=== PATIENT | female | born 1930 | race Caucasian/White ===

== ENCOUNTER → 2016-08-02 | Outpatient (REF) | payer MEDICARE, OTHER ==
[~2016-08-02] MED LIST: /HCTZ25TA PO; ALEV220C2 PO; ASTE137S; ATOR1TAB19 PO; CYCL5TA PO; DOCU100C PO; DOCU10ELUD PO; DULO1CAP2 PO; DULO30CA PO; FELO2.5T PO; FIBE625T PO; GABA300C2 PO; LATA0.00 OD; LATA0.00 OS; LATA5OPD OD; META800T82 PO; MOBI15TA PO; MULTTAB4 PO; OMEP20CA3 PO; OSCA200T PO; PERCOCET PO; POTA10TA PO; PREG50CA PO; QUET1TAB7 PO; SYSTANE BALANCE OU; TIZA2CAP3 PO; TRAM50TA2 PO; TYLE1TAB5 PO; ULTR37.52 PO; ULTR37.539 PO; ULTR50TA PO; [UNRECOGNIZED DRUG - CODE] PO
[2016-08-02 11:46] LABS: ALBUMIN 3.8 GM/DL (3.2-5.2); ALBUMIN/GLOBULIN RATIO 1.46 (1.00-1.93); ALKALINE PHOSPHATASE 80 U/L (45-117); ALT/SGPT 28 U/L (12-78); ANION GAP 7 MEQ/L (8-16); AST/SGOT 23 U/L (15-37); BILIRUBIN,TOTAL 0.4 MG/DL (0.2-1.0); BLOOD UREA NITROGEN 24 MG/DL (7-18); CALCIUM LEVEL 9.1 MG/DL (8.8-10.2); CARBON DIOXIDE LEVEL 33 MEQ/L (21-32); CHLORIDE LEVEL 105 MEQ/L (98-107); CREATININE FOR GFR 0.84 MG/DL (0.55-1.02); GLOMERULAR FILTRATION RATE > 60.0 (>32); GLUCOSE, FASTING 108 MG/DL (83-110); POTASSIUM SERUM 4.4 MEQ/L (3.5-5.1); SODIUM LEVEL 145 MEQ/L (136-145); TOTAL PROTEIN 6.4 GM/DL (6.4-8.2)
== END ==
LOC: M SFHCPLAZ 09:15
PROVIDERS: ATTEND Nurse Practitioner Family
DX: I10 Essential (primary) hypertension (principal)

== ENCOUNTER → 2016-08-04 | Outpatient (CLI) | payer MEDICARE, OTHER ==
--- NOTE | 2016-08-05 23:52 | ECWPNPC ---
PATIENT NAME: ROSINA SANCHEZ : 1930 GENDER: FEMALE VISIT DATE: 08/04/2016 DISCHARGE DATE: 08/04/16 1124 VISIT LOCKED DATE TIME: PHYSICIAN: ULYSSES STEARNS RESOURCE: ULYSSES STEARNS REASON FOR APPOINTMENT 1. DCS CHECK HISTORY OF PRESENT ILLNESS HISTORY OF PRESENT ILLNESS: PAIN THE PATIENT DESCRIBES THE PAIN... FALL RISK SCREENING: SCREENING :NO FALLS IN THE PAST YEAR TODAY'S VISIT: NOTES: RATES PAIN TODAY 3/10. NOTES DCS IS WORKING FAIRLY WELL. IS HAVING MORE DISCOMFORT TO KNEES WITH A CLICKING. NOTES PAIN IS INTERMITTANT HAS BEEN ABLE TO STAND TO DO HOUSEHOLD ACTIVITES BUT NOT ABLE TO WALK FAR SHE WOULD LIKE.. IS HAVING FRUSTRATION WITH NOT BEING ABLE TO DO EVERYTHING SHE WOULD LIKE TO DO. HAS SOME DIFFICULTY GETTING HER STIM TO CHARGE FULLY BUT NOTES IT HAS PRODICED SIGNIFICANT PAIN CONTROL. CURRENT MEDICATIONS TAKING SALINE 0.65 % SOLUTION 1 APPLICATION IN EACH NOSTRIL TO TREAT DRY NASAL PASSAGES NASALLY TWICE A DAY TAKING OSCAL 500/200 D-3 500-200 MG-UNIT TABLET 1 TABLET WITH FOOD ORALLY ONCE A DAY TAKING VITAMIN D 1000 UNIT TABLET 1 TABLET ORALLY ONCE A DAY TAKING MULTIVITAMINS OTC TABLET 1 TAB ORALLY ONCE A DAY TAKING TRAVATAN 0.004 % SOLUTION 1 DROP INTO AFFECTED EYE EVERY EVENING OPHTHALMIC ONCE A DAY TAKING CLOBETASOL PROPIONATE 0.05 % FOAM 1 APPLICATION TO AFFECTED AREA EXTERNALLY TWICE A DAY, PER DRMATOLOGY, NOTES: DERM TAKING COMPRESSION STOCKINGS 15-20 -DX: LEG EDEMA KNEE HIGH TOPICAL DAILY TAKING COLACE 100 MG CAPSULE 1-2 CAPSULES NEEDED ORALLY ONCE A DAY TAKING TYLENOL PM EXTRA STRENGTH 500-25 MG TABLET 2 TABS AT BEDTIME NEEDED ORALLY ONCE A DAY, NOTES: PAIN CLINIC TAKING SEROQUEL 50 MG TABLET 1 TABLET ORALLY TWICE A DAY, NOTES: DR ESPINOSA TAKING LATANOPROST 0.005 % SOLUTION 1 DROP INTO AFFECTED EYE IN THE EVENING OPHTHALMIC ONCE A DAY TAKING SYSTANE BALANCE 0.6 % SOLUTION 1 DROP OPHTHALMIC TWICE A DAY TAKING FELODIPINE 2.5 MG TABLET EXTENDED RELEASE 24 HOUR 1 TABLET ORALLY ONCE A DAY TAKING CYMBALTA 30 MG CAPSULE DELAYED RELEASE PARTICLES 1 CAPSULE ORALLY ONCE DAILY AT BEDTIME TAKING ALEVE 220 MG TABLET 1 TABLET NEEDED ORALLY EVERY 12 HRS TAKING OMEPRAZOLE 20 MG CAPSULE DELAYED RELEASE 1 CAPSULE ORALLY ONCE A DAY NEEDED TAKING LIPITOR 10 MG TABLET 1 TABLET ORALLY ONCE A DAY TAKING AZELASTINE HCL 0.1 % SOLUTION 1 PUFF IN EACH NOSTRIL NASALLY TWICE A DAY NOT-TAKING ACETAMINOPHEN 500 MG TABLET [address] SANFORD ORALLY EVERY 8 HRS NEEDED UNKNOWN BENZONATATE 100 MG CAPSULE 1 CAPSULE NEEDED ORALLY THREE TIMES A DAY MEDICATION LIST REVIEWED AND RECONCILED WITH THE PATIENT PAST MEDICAL HISTORY ALLERGIC RHINITIS HYPERTENSION, ESSENTIAL HYPERLIPIDEMIA, MIXED OSTEOARTHRITIS OSTEOPOROSIS: DEXA 03/16- FRAX SCORE: 16% MAJOR FX, 5.1% HIP FX RISK, STOPPED FOSAMAX DUE TO DENTAL PROBLEMS DEGENERATIVE DISEASE LUMBOSACRAL SPINE - DR SANFORD/ PAIN CLINIC DEPRESSION ALLERGIES TRAMADOL: ITCHING: ALLERGY SOCIAL HISTORY GENERAL: TOBACCO USE ARE YOU A:NONSMOKER LEARNING BARRIERS / SPECIAL NEEDS ORIENTED TO PLAN OF CARE: PATIENT, PAIN MANAGEMENT PATIENT, ORIENTED TO PLAN OF CARE: PATIENT, PAIN MANAGEMENT PATIENT. NEW PATIENT PAIN DIARY TODAY'S VISITNOTES FROM 0-10, WHAT LEVEL IS YOUR PAIN TODAY?0 PAIN CLINIC PFS, CLERGY, PUBLIC HEALTH REFERRALS PFS REFERRAL NEEDED?NO CLERGY REFERRAL NEEDED?NO PUBLIC HEALTH REFERRAL NEEDED?NO WAS THE PROVIDER NOTIFIED OF ANY PERTINENT INFO?NO PFS REFERRAL NEEDED?NO CLERGY REFERRAL NEEDED?NO PUBLIC HEALTH REFERRAL NEEDED?NO WAS THE PROVIDER NOTIFIED OF ANY PERTINENT INFO?NO REVIEW OF SYSTEMS CONSTITUTIONAL: ANY CHANGE IN YOUR MEDICAL CONDITION? NO . CHILLS NO . FEVER NO . INFECTION: DO YOU HAVE NEW INFECTIONS? NO . DO YOU HAVE HISTORY OF MRSA? NO . GASTROENTEROLOGY: ANY NEW CHANGE IN BOWEL CONTROL? NO . CONSTIPATION NO ASSOCIATED RECTAL BLEEDING . GENITOURINARY: ANY NEW CHANGE IN BLADDER CONTROL? NO . IS THERE A CHANCE YOU COULD BE ? NO . HEMATOLOGY/LYMPH: DO YOU TAKE ANY BLOOD THINNERS? (FOR EXAMPLE- COUMADIN, PLAVIX, AGGRENOX, PLATEL, PRADAXA, OR XARELTO) NO . WHEN WAS YOUR LAST DOSE? DATE: TIME: . NEUROLOGY: HAVE YOU FALLEN IN THE PAST 6 MONTHS? NO . ANY NEW EXTREMITY NUMBNESS OR WEAKNESS? NO . CARDIOLOGY: DO YOU HAVE A PACEMAKER OR DEFIBRILLATOR? NO . RESPIRATORY: HAVE YOU BEEN SICK IN THE PAST WEEK? YES COLD FOR THE PAST FEW WEEKS--FEELING BETTER NOW . FEVER NO . FLU LIKE SYMPTOMS? NO . COUGH NO . INTEGUMENTARY: DO YOU HAVE ANY RASHES OR OPEN SORES? YES . ALLERGIC/IMMUNO: ARE YOU ALLERGIC TO SHELLFISH OR IV DYE? NO . ANY NEW ALLERGIES? NO . PSYCHIATRIC: DO YOU HAVE THOUGHTS OF HURTING YOURSELF OR SOMEONE ELSE? NO . ARE YOU ABUSED, NEGLECTED, OR IN AN UNSAFE ENVIRONMENT? NO . ENDOCRINOLOGY: ARE YOU DIABETIC? NO . OTHER: DO YOU NEED ANY PRESCRIPTIONS? NO . IF YES, PLEASE LIST: ____ . ANY NEW PROBLEMS WITH YOUR MEDICATIONS? NO . WHEN DID YOU LAST EAT? ____ . WHEN DID YOU LAST DRINK? ____ . WHAT DID YOU LAST DRINK? ____ . NAME OF PERSON DRIVING YOU HOME? ____ . DO YOU HAVE ANY OTHER QUESTIONS OR CONCERNS PAIN IN KNEES . HEENT: LOSS OF HEARING NEW HEARING AIDE - HAS SORE AREA ON RIGHT EAR . PSYCHOLOGY: HALLUCINATIONS NOTES VERY RARE EPISODES OF "MUSIC' AND THIS HAS NOT BEEN TROUBLESOME . UROLOGY: PATIENT COMPLAINING OF FREQUENT URINATION . REVIEWED BY: PROVIDER: ULYSSES CARLISLE . VITAL SIGNS WT 142 LBS, HT 65.5 IN, BMI 23.27 INDEX, BP 140/75 MM HG, HR 88 /MIN, RR 18 /MIN, TEMP 98.4 F, OXYGEN SAT % 97%, NA INITIALS SC 10:30, REVIEWED BY: AD. EXAMINATION GENERAL EXAMINATION: LUNGS:CLEAR TO AUSCULTATION BILATERALLY. HEART:HEART RATE REGULAR. MUSCULOSKELETAL:MILD TENDERNESS OVER LUMBOSACRAL AXIS. SLOW TO RISE TO STANDING POSITION AND GAINING UPRIGHT BALANCE. SPINE INSPECTED - WELL HEALED SURGICAL INCISIONS. NO SKIN LESION. NO TENDERNESS OVER THW BATTERY GENERATOR RIGHT SACRAL REGION. 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 NO SHARPS BENDS AT WAIST., FALLS CARE PLAN: 1. RECOMMEND REMOVING ALL THROW RUGS. 2. RECOMMEND NIGHT LIGHTS 3. RECOMMEND WEARING RUBBER SOLED SHOES AND TO NOT GO BAREFOOT. 4.. ADVISED TO CHANGE POSITION SLOWLY FROM SUPINE TO STANDING TO AVOID DIZZINESS. 5. ADVISED TO USE ASSISTIVE DEVICE SUCH CANE OR WALKER 6. USE LIFELINE SERVICES OR KEEP PORTABLE PHONE READILY AVAILABLE. PROCEDURE CODES FA211 ESTABILISHED PATIENT [facility] CHARGE G8783 BP SCR PRFRM RCMDD DEFIND SCR INTVL G8730 PAIN ASSESS POS TOOL F/U PLAN DOC 3016F PT SCRND UNHLTHY OH USE 1123F ACP DISCUSS/DSCN MKR DOCD 1036F TOBACCO NON-USER 0518F FALL PLAN OF CARE DOCD G8427 DOC MEDS VERIFIED W/PT OR RE G8420 BMI<30 AND >=22 CALC & DOCU 3288F FALL RISK ASSESSMENT DOCD DISPOSITION & COMMUNICATION FOLLOW UP 6 MONTH ELECTRONICALLY SIGNED BY СВЕТЛАНА RYAN ON 08/04/2016 AT 11:47 AM EST DISCLAIMER : THIS IS A VISIT SUMMARY EXTRACTED FROM THE [employer] CHART. IT IS NOT A COPY OF THE [employer] PROGRESS NOTE. SHIRIN
== END ==
LOC: M PAIN 10:00
PROVIDERS: ATTEND Nurse Practitioner Family
DX: Z09 Encounter for follow-up examination after completed treatment for conditions other than malignant neoplasm (principal); G89.29 Other chronic pain; M96.1 Postlaminectomy syndrome, not elsewhere classified; M15.9 Polyosteoarthritis, unspecified; I10 Essential (primary) hypertension; E78.2 Mixed hyperlipidemia; J30.89 Other allergic rhinitis; F32.9 Major depressive disorder, single episode, unspecified; Z88.5 Allergy status to narcotic agent; Z79.1 Long term (current) use of non-steroidal anti-inflammatories (NSAID); Z79.899 Other long term (current) drug therapy

== ENCOUNTER → 2017-02-06 | Outpatient (CLI) | payer MEDICARE, OTHER ==
[~2017-02-06] MED LIST changes: -DOCU100C PO; +DOCU100C16 PO; -ULTR37.52 PO; +ULTR37.54 PO
--- NOTE | 2017-02-25 00:23 | ECWPNPC ---
PATIENT NAME: ROSINA SANCHEZ : 1930 GENDER: FEMALE VISIT DATE: 02/06/2017 DISCHARGE DATE: 02/06/17 1227 VISIT LOCKED DATE TIME: PHYSICIAN: ULYSSES STEARNS RESOURCE: ULYSSES STEARNS REASON FOR APPOINTMENT 1. DCS CHECK HISTORY OF PRESENT ILLNESS HISTORY OF PRESENT ILLNESS: PAIN THE PATIENT DESCRIBES THE PAIN... FALL RISK SCREENING: SCREENING :NO FALLS IN THE PAST YEAR TODAY'S VISIT: NOTES: RATES PAIN TODAY 3-4/10. DESCRIBES PAIN INTERMITTANT AND LOCATED IN LOW BACK, LEFT SIDE. NOTES BACK AND LEG PAIN HAVE BEEN UNDER FAIRLY GOD CONTROL. NOTES STIM IS WORKING WELL. IS ABLE TO STAND WHERE THIS WAS A PROBLEM PRIOR TO THE STIMULATOR. NOTES LEFT KNEE IS PROBLEMATIC. INTERMITTANT ISSUES WITH RIGHT SHOULDER JOINT. CURRENT MEDICATIONS TAKING SALINE 0.65 % SOLUTION 1 APPLICATION IN EACH NOSTRIL TO TREAT DRY NASAL PASSAGES NASALLY TWICE A DAY TAKING OSCAL 500/200 D-3 500-200 MG-UNIT TABLET 1 TABLET WITH FOOD ORALLY ONCE A DAY TAKING VITAMIN D 1000 UNIT TABLET 1 TABLET ORALLY ONCE A DAY TAKING MULTIVITAMINS OTC TABLET 1 TAB ORALLY ONCE A DAY TAKING TRAVATAN 0.004 % SOLUTION 1 DROP INTO AFFECTED EYE EVERY EVENING OPHTHALMIC ONCE A DAY TAKING CLOBETASOL PROPIONATE 0.05 % FOAM 1 APPLICATION TO AFFECTED AREA EXTERNALLY TWICE A DAY, PER DRMATOLOGY, NOTES: DERM TAKING COMPRESSION STOCKINGS -DX: LEG EDEMA KNEE HIGH TOPICAL DAILY TAKING COLACE 100 MG CAPSULE 1-2 CAPSULES NEEDED ORALLY ONCE A DAY TAKING TYLENOL PM EXTRA STRENGTH 500-25 MG TABLET 2 TABS AT BEDTIME NEEDED ORALLY ONCE A DAY, NOTES: PAIN CLINIC TAKING SEROQUEL 50 MG TABLET 1 TABLET ORALLY TWICE A DAY, NOTES: DR ESPINOSA TAKING LATANOPROST 0.005 % SOLUTION 1 DROP INTO AFFECTED EYE IN THE EVENING OPHTHALMIC ONCE A DAY TAKING SYSTANE BALANCE 0.6 % SOLUTION 1 DROP OPHTHALMIC TWICE A DAY TAKING AZELASTINE HCL 0.1 % SOLUTION 1 PUFF IN EACH NOSTRIL NASALLY TWICE A DAY TAKING ACETAMINOPHEN 500 MG TABLET [address] SANFORD ORALLY EVERY 8 HRS NEEDED TAKING OMEPRAZOLE 20 MG CAPSULE DELAYED RELEASE 1 CAPSULE ORALLY ONCE A DAY NEEDED TAKING LIPITOR 10 MG TABLET 1 TABLET ORALLY ONCE A DAY TAKING ASTELIN 30 MG SOLUTION 1-2 PUFFS IN EACH NOSTRIL NASALLY TWICE A DAY NEEDED TAKING ALEVE 220 MG TABLET 1 TABLET NEEDED ORALLY EVERY 12 HRS TAKING FELODIPINE 2.5 MG TABLET EXTENDED RELEASE 24 HOUR 1 TABLET ORALLY ONCE A DAY NOT-TAKING CYMBALTA 30 MG CAPSULE DELAYED RELEASE PARTICLES 1 CAPSULE ORALLY ONCE DAILY AT BEDTIME NOT-TAKING BENZONATATE 100 MG CAPSULE 1 CAPSULE NEEDED ORALLY THREE TIMES A DAY MEDICATION LIST REVIEWED AND RECONCILED WITH THE PATIENT PAST MEDICAL HISTORY ALLERGIC RHINITIS HYPERTENSION, ESSENTIAL HYPERLIPIDEMIA, MIXED OSTEOARTHRITIS (NEG SCREEN FOR RA, SANDEE) OSTEOPOROSIS: DEXA 11/17- FRAX SCORE: 20% MAJOR FX, 5.9% HIP FX RISK, STOPPED FOSAMAX DUE TO DENTAL PROBLEMS DEGENERATIVE DISEASE LUMBOSACRAL SPINE - DR SANFORD/ PAIN CLINIC DEPRESSION ALLERGIES TRAMADOL: ITCHING: ALLERGY REVIEW OF SYSTEMS REVIEWED BY: PROVIDER: ULYSSES CARLISLE . CONSTITUTIONAL: LEVEL OF FUNCTIONALITY NOW HAS LIFE ALERT DEVICE . ANY CHANGE IN YOUR MEDICAL CONDITION? NO . CHILLS NO . FEVER NO . INFECTION: DO YOU HAVE NEW INFECTIONS? NO . DO YOU HAVE HISTORY OF MRSA? NO . MUSCULOSKELETAL: ANY NEW PATTERNS OF PAIN OR NUMBNESS? YES, BOTH KNEES . GASTROENTEROLOGY: ANY NEW CHANGE IN BOWEL CONTROL? NO . GENITOURINARY: ANY NEW CHANGE IN BLADDER CONTROL? NO . IS THERE A CHANCE YOU COULD BE ? NO . HEMATOLOGY/LYMPH: DO YOU TAKE ANY BLOOD THINNERS? (FOR EXAMPLE- COUMADIN, PLAVIX, AGGRENOX, PLATEL, PRADAXA, OR XARELTO) NO . WHEN WAS YOUR LAST DOSE? DATE: TIME: . NEUROLOGY: HAVE YOU FALLEN IN THE PAST 6 MONTHS? NO . ANY NEW EXTREMITY NUMBNESS OR WEAKNESS? NO . CARDIOLOGY: DO YOU HAVE A PACEMAKER OR DEFIBRILLATOR? NO . RESPIRATORY: HAVE YOU BEEN SICK IN THE PAST WEEK? NO . FEVER NO . FLU LIKE SYMPTOMS? NO . COUGH NO . INTEGUMENTARY: DO YOU HAVE ANY RASHES OR OPEN SORES? NO . ALLERGIC/IMMUNO: ARE YOU ALLERGIC TO SHELLFISH OR IV DYE? NO . ANY NEW ALLERGIES? NO . PSYCHIATRIC: DO YOU HAVE THOUGHTS OF HURTING YOURSELF OR SOMEONE ELSE? NO . ARE YOU ABUSED, NEGLECTED, OR IN AN UNSAFE ENVIRONMENT? NO . ENDOCRINOLOGY: ARE YOU DIABETIC? NO . OTHER: DO YOU NEED ANY PRESCRIPTIONS? NO . IF YES, PLEASE LIST: ____ . ANY NEW PROBLEMS WITH YOUR MEDICATIONS? NO . WHEN DID YOU LAST EAT? ____ . WHEN DID YOU LAST DRINK? ____ . WHAT DID YOU LAST DRINK? ____ . NAME OF PERSON DRIVING YOU HOME? ____ . DO YOU HAVE ANY OTHER QUESTIONS OR CONCERNS NO . HEENT: LOSS OF HEARING HAVING ISSUES WITH HEARING AIDES AND HAS BEEN TO AUDIOLOGY . 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 INICIAL WORK DONE IN [facility] WITH FURTHER REVISION IN [facility] . VITAL SIGNS WT 147 LBS, HT 65.5 IN, BMI 24.09 INDEX, BP 144/75 MM HG, HR 89 /MIN, RR 16 /MIN, TEMP 98.3 F, OXYGEN SAT % 98%, NA INITIALS 11:44. EXAMINATION GENERAL EXAMINATION: LUNGS:CLEAR TO AUSCULTATION BILATERALLY. HEART:HEART RATE REGULAR. MUSCULOSKELETAL:MILD TENDERNESS OVER LUMBOSACRAL AXIS. SLOW TO RISE TO STANDING POSITION AND GAINING UPRIGHT BALANCE. SPINE INSPECTED - WELL HEALED SURGICAL INCISIONS. NO SKIN LESION. NO TENDERNESS OVER THW BATTERY GENERATOR RIGHT SACRAL REGION. 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 PROCEDURE CODES FA211 ESTABILISHED PATIENT [facility] CHARGE G8730 PAIN ASSESS POS TOOL F/U PLAN DOC G8427 DOC MEDS VERIFIED W/PT OR RE DISPOSITION & COMMUNICATION FOLLOW UP 6 MONTHS (REASON: BACK PAIN /DCS) ELECTRONICALLY SIGNED BY СВЕТЛАНА RYAN ON 02/23/2017 AT 08:48 AM EDT DISCLAIMER : THIS IS A VISIT SUMMARY EXTRACTED FROM THE [employer] CHART. IT IS NOT A COPY OF THE [employer] PROGRESS NOTE. SHIRIN
== END ==
LOC: M PAIN 11:30
PROVIDERS: ATTEND Nurse Practitioner Family
DX: M96.1 Postlaminectomy syndrome, not elsewhere classified (principal); M15.9 Polyosteoarthritis, unspecified; I10 Essential (primary) hypertension; E78.2 Mixed hyperlipidemia; J30.89 Other allergic rhinitis; Z88.5 Allergy status to narcotic agent; Z79.899 Other long term (current) drug therapy

== ENCOUNTER → 2017-08-06 | Outpatient (CLI) | payer MEDICARE, OTHER | LOC: M PAIN 10:45 | DX: M96.1 Postlaminectomy syndrome, not elsewhere classified (principal); M15.9 Polyosteoarthritis, unspecified; E78.5 Hyperlipidemia, unspecified; I10 Essential (primary) hypertension; Z79.899 Other long term (current) drug therapy; Z88.8 Allergy status to other drugs, medicaments and biological substances | CPT/HCPCS: G0463 ==

== ENCOUNTER → 2017-08-22 | Outpatient (REF) | payer MEDICARE, OTHER ==
[2017-08-22 12:14] LABS: ALKALINE PHOSPHATASE 74 U/L (45-117); ALT/SGPT 24 U/L (12-78); ANION GAP 5 MEQ/L (8-16); AST/SGOT 23 U/L (7-37); BILIRUBIN,TOTAL 0.5 MG/DL (0.2-1.0); BLOOD UREA NITROGEN 23 MG/DL (7-18); CALCIUM LEVEL 9.2 MG/DL (8.8-10.2); CARBON DIOXIDE LEVEL 32 MEQ/L (21-32); CHLORIDE LEVEL 107 MEQ/L (98-107); CHOLESTEROL LEVEL 206 MG/DL (<200); CHOLESTEROL RISK RATIO 2.985 (<5); CREATININE FOR GFR 0.79 MG/DL (0.55-1.30); GLOMERULAR FILTRATION RATE > 60.0 (>32); GLUCOSE, FASTING 110 MG/DL (70-100); HDL CHOLESTEROL 69 MG/DL (>40); NON-HDL-C 137 MG/DL; POTASSIUM SERUM 4.3 MEQ/L (3.5-5.1); SODIUM LEVEL 144 MEQ/L (136-145); TOTAL PROTEIN 6.5 GM/DL (6.4-8.2); TRIGLYCERIDES LEVEL 215 MG/DL (<150)
== END ==
LOC: M SFHCPLAZ 09:16
DX: I10 Essential (primary) hypertension (principal); E78.2 Mixed hyperlipidemia
CPT/HCPCS: 80053

== ENCOUNTER 2017-11-30 11:17 | Inpatient (IN) | payer MEDICARE, OTHER ==
[2017-11-30 12:15] LABS: BASO % 0.7 % (0.0-1.0); EOS # 0.1 10^3/uL (0.0-0.50); EOS % 0.8 % (0.0-3.0); HEMATOCRIT 36.2 % (36.0-47.0); HEMOGLOBIN 11.9 g/dl (12.0-15.5); IMMATURE GRANULOCYTE % 0.3 % (0-3.0); LYMPH # 1.1 10^3/uL (1.5-4.5); LYMPH % 17.9 % (24.0-44.0); MEAN CORPUSCULAR HEMOGLOBIN 31.5 pg (27.0-33.0); MEAN CORPUSCULAR HGB CONC 32.9 g/dl (32.0-36.5); MEAN CORPUSCULAR VOLUME 95.8 fl (80.0-96.0); MONO # 0.4 10^3/uL (0.0-0.8); MONO % 5.9 % (0.0-5.0); NEUTROPHILS # 4.5 10^3/uL (1.8-7.7); NEUTROPHILS % 74.4 % (36.0-66.0); PLATELET COUNT, AUTOMATED 257 10^3/uL (150-450); RED BLOOD COUNT 3.78 10^6/uL (4.00-5.40); RED CELL DISTRIBUTION WIDTH 13.5 % (11.5-14.5); WHITE BLOOD COUNT 6.1 10^3/uL (4.0-10.0)
[2017-11-30] MEDS: ONDANSETRON 4MG/2ML VIAL (J2405) IV (12:34)
[2017-11-30] MEDS: fentaNYL 100 MCG/2 ML INJECTION (J3010) IV ×2 (12:35→14:13)
[2017-11-30 12:43] LABS: ANION GAP 7 MEQ/L (8-16); BLOOD UREA NITROGEN 21 MG/DL (7-18); CALCIUM LEVEL 9.5 MG/DL (8.8-10.2); CARBON DIOXIDE LEVEL 30 MEQ/L (21-32); CHLORIDE LEVEL 106 MEQ/L (98-107); CK-MB VALUE MASS 1.3 NG/ML (<3.6); CPK CREATINE PHOSPHOKINASE 86 U/L (26-192); CREATININE FOR GFR 0.87 MG/DL (0.55-1.30); GLOMERULAR FILTRATION RATE > 60.0 (>32); GLUCOSE, FASTING 109 MG/DL (70-100); MB/CK RELATIVE INDEX 1.51 (< OR =4); POTASSIUM SERUM 4.3 MEQ/L (3.5-5.1); SODIUM LEVEL 143 MEQ/L (136-145); TROPONIN I < 0.02 NG/ML (< 0.10)
[2017-11-30] MEDS ORDERED: FLUTICASONE 0.05% CREAM 30GM (CUTIVATE) TOP (16:30)
[2017-11-30] MEDS ORDERED: ONDANSETRON 4MG/2ML VIAL (J2405) IV (16:45)
[2017-11-30] MEDS: NS 1,000 ML IV (19:14)
[2017-11-30] MEDS: HEPARIN SOD (PORCINE) 5000 UNITS/ML VIAL SC (21:38)
[2017-11-30] MEDS: LATANOPROST 0.005% OPHTH SOLN 2.5 ML OS (21:38)
[2017-11-30] MEDS: QUEtiapine FUMARATE 25 MG TAB PO (21:38)
[2017-11-30] MEDS: HYDROMORPHONE HCL 0.5 MG/ 0.5 ML SYRINGE (J1170 PER 1) IV (21:56)
[2017-11-30] MEDS: ACETAMINOPHEN TAB 650MG DOSE (2X325MG) PO (23:47)
[2017-12-01] MEDS: HYDROMORPHONE HCL 0.5 MG/ 0.5 ML SYRINGE (J1170 PER 1) IV ×2 (02:01→10:46)
[2017-12-01] MEDS: HEPARIN SOD (PORCINE) 5000 UNITS/ML VIAL SC (05:34)
[2017-12-01] MEDS: DULoxetine 30 MG CAP (CYMBALTA) PO (09:00)
[2017-12-01] MEDS: QUEtiapine FUMARATE 50 MG TAB PO (09:00)
[2017-12-01] MEDS: MULTIVITAMINS/MINERALS THERAP 1 TAB PO (09:00)
[2017-12-01] MEDS: OMEPRAZOLE 20 MG CAP PO (09:00)
[2017-12-01] MEDS: VITAMIN D 1,000 INTERNATIONAL UNITS TABLET PO (09:00)
[2017-12-01] MEDS: NS 1,000 ML IV (10:13)
[2017-12-01] MEDS ORDERED: PROPOFOL 200 MG/20 ML VIAL As Ordered (10:33)
[2017-12-01] MEDS ORDERED: MIDAZOLAM INJ 2 MG/2 ML VIAL (J2250) As Ordered (10:33)
[2017-12-01] MEDS ORDERED: LIDOCAINE 2% INJ 100 MG/5 ML SDV (FOR ANES.) As Ordered (10:33)
[2017-12-01] MEDS ORDERED: fentaNYL 100 MCG/2 ML INJECTION (J3010) As Ordered (10:34)
[2017-12-01] MEDS: ceFAZolin SOD 1 GM in D5W MINI-BAG PLUS 50 ML IV (11:11)
[2017-12-01] MEDS ORDERED: ROCURONIUM BROMIDE 50 MG/5 ML VIAL As Ordered (11:31)
[2017-12-01] MEDS: BUPIVACAINE/EPIN 0.25% 30 ML VIAL As Ordered (12:59)
[2017-12-01] MEDS: ceFAZolin 1GM INJ (J0690 PER 500MG) As Ordered (12:59)
[2017-12-01] MEDS: LATANOPROST 0.005% OPHTH SOLN 2.5 ML OS (20:16)
[2017-12-01] MEDS: LATANOPROST 0.005% OPHTH SOLN 2.5 ML OD (20:16)
[2017-12-01] MEDS: DOCUSATE SODIUM 100 MG CAP PO (20:27)
[2017-12-01] MEDS: QUEtiapine FUMARATE 25 MG TAB PO (20:27)
[2017-12-01] MEDS: ENOXAPARIN 40 MG/0.4 ML SYRINGE (J1650) SC (20:28)
[2017-12-01] MEDS: ACETAMINOPHEN TAB 650MG DOSE (2X325MG) PO (20:31)
[2017-12-02] MEDS: NS 1,000 ML IV ×3 (00:24→23:40)
[2017-12-02 06:02] LABS: MEAN CORPUSCULAR HEMOGLOBIN 31.3 pg (27.0-33.0); MEAN CORPUSCULAR HGB CONC 32.6 g/dl (32.0-36.5); MEAN CORPUSCULAR VOLUME 96.1 fl (80.0-96.0); PLATELET COUNT, AUTOMATED 185 10^3/uL (150-450); RED BLOOD COUNT 2.81 10^6/uL (4.00-5.40); RED CELL DISTRIBUTION WIDTH 13.8 % (11.5-14.5); WHITE BLOOD COUNT 7.3 10^3/uL (4.0-10.0)
[2017-12-02 06:06] LABS: ANION GAP 6 MEQ/L (8-16); BLOOD UREA NITROGEN 15 MG/DL (7-18); CARBON DIOXIDE LEVEL 27 MEQ/L (21-32); CHLORIDE LEVEL 113 MEQ/L (98-107); CREATININE FOR GFR 0.62 MG/DL (0.55-1.30); GLOMERULAR FILTRATION RATE > 60.0 (>32); GLUCOSE, FASTING 123 MG/DL (70-100); POTASSIUM SERUM 3.5 MEQ/L (3.5-5.1); SODIUM LEVEL 146 MEQ/L (136-145)
[2017-12-02 06:11] LABS: HEMOGLOBIN 8.8 g/dl (12.0-15.5)
[2017-12-02] MEDS ORDERED: traMADol 50 MG TAB PO ×2 (07:30)
[2017-12-02] MEDS: DULoxetine 30 MG CAP (CYMBALTA) PO (10:14)
[2017-12-02] MEDS: MULTIVITAMINS/MINERALS THERAP 1 TAB PO (10:14)
[2017-12-02] MEDS: QUEtiapine FUMARATE 50 MG TAB PO (10:14)
[2017-12-02] MEDS: OMEPRAZOLE 20 MG CAP PO (10:14)
[2017-12-02] MEDS: VITAMIN D 1,000 INTERNATIONAL UNITS TABLET PO (10:15)
[2017-12-02] MEDS: PERCOCET 5MG/325MG TAB PO (15:23)
[2017-12-02] MEDS: ATORVASTATIN 10 MG TAB PO (21:15)
[2017-12-02] MEDS: QUEtiapine FUMARATE 25 MG TAB PO (21:15)
[2017-12-02] MEDS: LATANOPROST 0.005% OPHTH SOLN 2.5 ML OS (21:16)
[2017-12-02] MEDS: ENOXAPARIN 40 MG/0.4 ML SYRINGE (J1650) SC (21:40)
[2017-12-03 06:59] LABS: HEMATOCRIT 26.8 % (36.0-47.0); HEMOGLOBIN 8.7 g/dl (12.0-15.5); MEAN CORPUSCULAR HEMOGLOBIN 31.5 pg (27.0-33.0); MEAN CORPUSCULAR HGB CONC 32.5 g/dl (32.0-36.5); MEAN CORPUSCULAR VOLUME 97.1 fl (80.0-96.0); PLATELET COUNT, AUTOMATED 186 10^3/uL (150-450); RED BLOOD COUNT 2.76 10^6/uL (4.00-5.40); WHITE BLOOD COUNT 7.2 10^3/uL (4.0-10.0)
[2017-12-03 07:21] LABS: ANION GAP 6 MEQ/L (8-16); BLOOD UREA NITROGEN 19 MG/DL (7-18); CALCIUM LEVEL 7.9 MG/DL (8.8-10.2); CARBON DIOXIDE LEVEL 28 MEQ/L (21-32); CHLORIDE LEVEL 113 MEQ/L (98-107); CREATININE FOR GFR 0.68 MG/DL (0.55-1.30); GLOMERULAR FILTRATION RATE > 60.0 (>32); GLUCOSE, FASTING 118 MG/DL (70-100); POTASSIUM SERUM 3.8 MEQ/L (3.5-5.1); SODIUM LEVEL 147 MEQ/L (136-145)
[2017-12-03] MEDS: VITAMIN D 1,000 INTERNATIONAL UNITS TABLET PO (09:25)
[2017-12-03] MEDS: DULoxetine 30 MG CAP (CYMBALTA) PO (09:25)
[2017-12-03] MEDS: QUEtiapine FUMARATE 50 MG TAB PO (09:25)
[2017-12-03] MEDS: MULTIVITAMINS/MINERALS THERAP 1 TAB PO (09:25)
[2017-12-03] MEDS: OMEPRAZOLE 20 MG CAP PO (09:25)
[2017-12-03] MEDS: PERCOCET 5MG/325MG TAB PO ×2 (09:27→18:30)
[2017-12-03] MEDS ORDERED: BUPIVACAINE/EPIN 0.25% 30 ML VIAL As Ordered (11:02)
[2017-12-03] MEDS ORDERED: MIDAZOLAM INJ 2 MG/2 ML VIAL (J2250) As Ordered (14:07)
[2017-12-03] MEDS ORDERED: fentaNYL 100 MCG/2 ML INJECTION (J3010) As Ordered ×4 (14:07→17:59)
[2017-12-03] MEDS ORDERED: ONDANSETRON 4MG/2ML VIAL (J2405) As Ordered (14:51)
[2017-12-03] MEDS ORDERED: dexameTHASONE 4 MG/ML 1ML VIAL (J1100) As Ordered (14:51)
[2017-12-03] MEDS ORDERED: LIDOCAINE 2% INJ 100 MG/5 ML SDV (FOR ANES.) As Ordered (14:51)
[2017-12-03] MEDS ORDERED: ROCURONIUM BROMIDE 50 MG/5 ML VIAL As Ordered ×2 (14:51→15:15)
[2017-12-03] MEDS ORDERED: NEOSTIGMINE 10 MG/10 ML VIAL (J2710) As Ordered (14:51)
[2017-12-03] MEDS ORDERED: PROPOFOL 200 MG/20 ML VIAL As Ordered (14:51)
[2017-12-03] MEDS ORDERED: GLYCOPYRROLATE INJ 0.2 MG/ML 2 ML VIAL As Ordered (14:52)
[2017-12-03] MEDS: ceFAZolin 1GM INJ (J0690 PER 500MG) As Ordered ×2 (15:05→16:50)
[2017-12-03] MEDS: fentaNYL 100 MCG/2 ML INJECTION (J3010) IV ×4 (18:00→18:30)
[2017-12-03] MEDS ORDERED: PERCOCET 5MG/325MG TAB As Ordered (18:30)
[2017-12-03] MEDS ORDERED: ONDANSETRON 4MG/2ML VIAL (J2405) IV ×3 (18:30→20:00)
[2017-12-03] MEDS: LR 1,000 ML IV ×2 (18:30→20:00)
[2017-12-03] MEDS ORDERED: METOCLOPRAMIDE INJ 10MG/2ML VIAL (J2765) IV ×2 (18:30→20:00)
[2017-12-03] MEDS ORDERED: PERCOCET 5MG/325MG TAB PO ×2 (18:45→20:00)
[2017-12-03] MEDS ORDERED: fentaNYL 100 MCG/2 ML INJECTION (J3010) IV (20:00)
[2017-12-03] MEDS: LATANOPROST 0.005% OPHTH SOLN 2.5 ML OS (20:25)
[2017-12-03] MEDS: ATORVASTATIN 10 MG TAB PO (20:26)
[2017-12-03] MEDS: DOCUSATE SODIUM 100 MG CAP PO (20:26)
[2017-12-03] MEDS: QUEtiapine FUMARATE 25 MG TAB PO (20:26)
[2017-12-03] MEDS: ACETAMINOPHEN 500 MG TAB PO (20:26)
[2017-12-04 06:26] LABS: HEMATOCRIT 24.6 % (36.0-47.0); HEMOGLOBIN 8.1 g/dl (12.0-15.5); MEAN CORPUSCULAR HEMOGLOBIN 31.8 pg (27.0-33.0); MEAN CORPUSCULAR HGB CONC 32.9 g/dl (32.0-36.5); MEAN CORPUSCULAR VOLUME 96.5 fl (80.0-96.0); PLATELET COUNT, AUTOMATED 213 10^3/uL (150-450); RED BLOOD COUNT 2.55 10^6/uL (4.00-5.40); RED CELL DISTRIBUTION WIDTH 13.9 % (11.5-14.5); WHITE BLOOD COUNT 7.8 10^3/uL (4.0-10.0)
[2017-12-04 06:48] LABS: ANION GAP 7 MEQ/L (8-16); BLOOD UREA NITROGEN 22 MG/DL (7-18); CALCIUM LEVEL 7.9 MG/DL (8.8-10.2); CARBON DIOXIDE LEVEL 27 MEQ/L (21-32); CHLORIDE LEVEL 113 MEQ/L (98-107); CREATININE FOR GFR 0.75 MG/DL (0.55-1.30); GLOMERULAR FILTRATION RATE > 60.0 (>32); GLUCOSE, FASTING 154 MG/DL (70-100); POTASSIUM SERUM 4.2 MEQ/L (3.5-5.1); SODIUM LEVEL 147 MEQ/L (136-145)
[2017-12-04] MEDS: MIRALAX *UNIT DOSE* 17GM PACKET PO (09:00)
[2017-12-04] MEDS: QUEtiapine FUMARATE 50 MG TAB PO (09:36)
[2017-12-04] MEDS: ACETAMINOPHEN 500 MG TAB PO ×2 (09:36→20:38)
[2017-12-04] MEDS: DULoxetine 30 MG CAP (CYMBALTA) PO (09:36)
[2017-12-04] MEDS: OMEPRAZOLE 20 MG CAP PO (09:36)
[2017-12-04] MEDS: MULTIVITAMINS/MINERALS THERAP 1 TAB PO (09:36)
[2017-12-04] MEDS: VITAMIN D 1,000 INTERNATIONAL UNITS TABLET PO (09:36)
[2017-12-04] MEDS: RIVAROXABAN 10 MG TAB (XARELTO) PO (18:00)
[2017-12-04] MEDS: ATORVASTATIN 10 MG TAB PO (20:37)
[2017-12-04] MEDS: QUEtiapine FUMARATE 25 MG TAB PO (20:38)
[2017-12-04] MEDS: LATANOPROST 0.005% OPHTH SOLN 2.5 ML OS (20:38)
[2017-12-05 07:22] LABS: HEMATOCRIT 22.2 % (36.0-47.0); HEMOGLOBIN 7.2 g/dl (12.0-15.5); MEAN CORPUSCULAR HEMOGLOBIN 31.9 pg (27.0-33.0); MEAN CORPUSCULAR HGB CONC 32.4 g/dl (32.0-36.5); MEAN CORPUSCULAR VOLUME 98.2 fl (80.0-96.0); PLATELET COUNT, AUTOMATED 228 10^3/uL (150-450); RED BLOOD COUNT 2.26 10^6/uL (4.00-5.40); WHITE BLOOD COUNT 7.2 10^3/uL (4.0-10.0)
[2017-12-05 07:42] LABS: ANION GAP 6 MEQ/L (8-16); BLOOD UREA NITROGEN 31 MG/DL (7-18); CALCIUM LEVEL 7.9 MG/DL (8.8-10.2); CARBON DIOXIDE LEVEL 29 MEQ/L (21-32); CHLORIDE LEVEL 111 MEQ/L (98-107); CREATININE FOR GFR 0.65 MG/DL (0.55-1.30); GLOMERULAR FILTRATION RATE > 60.0 (>32); GLUCOSE, FASTING 122 MG/DL (70-100); POTASSIUM SERUM 3.7 MEQ/L (3.5-5.1); SODIUM LEVEL 146 MEQ/L (136-145)
[2017-12-05] MEDS: ACETAMINOPHEN 500 MG TAB PO (08:48)
[2017-12-05] MEDS: QUEtiapine FUMARATE 50 MG TAB PO (08:48)
[2017-12-05] MEDS: VITAMIN D 1,000 INTERNATIONAL UNITS TABLET PO (08:48)
[2017-12-05] MEDS: DULoxetine 30 MG CAP (CYMBALTA) PO (08:48)
[2017-12-05] MEDS: OMEPRAZOLE 20 MG CAP PO (08:48)
[2017-12-05] MEDS: MULTIVITAMINS/MINERALS THERAP 1 TAB PO (08:48)
[2017-12-05] MEDS: MIRALAX *UNIT DOSE* 17GM PACKET PO (08:48)
[2017-12-05 09:51] LABS: IMMEDIATE SPIN CROSSMATCH 1 1
[2017-12-05] MEDS: RIVAROXABAN 10 MG TAB (XARELTO) PO (17:20)
[2017-12-05] MEDS: LATANOPROST 0.005% OPHTH SOLN 2.5 ML OS (21:19)
[2017-12-05] MEDS: ATORVASTATIN 10 MG TAB PO (21:19)
[2017-12-05] MEDS: QUEtiapine FUMARATE 25 MG TAB PO (21:19)
[2017-12-05] MEDS: PERCOCET 5MG/325MG TAB PO (21:20)
[2017-12-06 07:09] LABS: HEMOGLOBIN 8.6 g/dl (12.0-15.5); MEAN CORPUSCULAR HEMOGLOBIN 31.2 pg (27.0-33.0); MEAN CORPUSCULAR HGB CONC 31.9 g/dl (32.0-36.5); MEAN CORPUSCULAR VOLUME 97.8 fl (80.0-96.0); PLATELET COUNT, AUTOMATED 256 10^3/uL (150-450); RED BLOOD COUNT 2.76 10^6/uL (4.00-5.40); RED CELL DISTRIBUTION WIDTH 14.8 % (11.5-14.5); WHITE BLOOD COUNT 6.7 10^3/uL (4.0-10.0)
[2017-12-06 07:30] LABS: ANION GAP 7 MEQ/L (8-16); BLOOD UREA NITROGEN 28 MG/DL (7-18); CALCIUM LEVEL 8.3 MG/DL (8.8-10.2); CARBON DIOXIDE LEVEL 30 MEQ/L (21-32); CHLORIDE LEVEL 110 MEQ/L (98-107); CREATININE FOR GFR 0.67 MG/DL (0.55-1.30); GLOMERULAR FILTRATION RATE > 60.0 (>32); GLUCOSE, FASTING 109 MG/DL (70-100); SODIUM LEVEL 147 MEQ/L (136-145)
[2017-12-06] MEDS: DULoxetine 30 MG CAP (CYMBALTA) PO (08:48)
[2017-12-06] MEDS: OMEPRAZOLE 20 MG CAP PO (08:48)
[2017-12-06] MEDS: MIRALAX *UNIT DOSE* 17GM PACKET PO (08:48)
[2017-12-06] MEDS: MAGNESIUM CITRATE 300 ML BTL PO (08:49)
[2017-12-06] MEDS: QUEtiapine FUMARATE 50 MG TAB PO (08:49)
[2017-12-06] MEDS: VITAMIN D 1,000 INTERNATIONAL UNITS TABLET PO (08:49)
[2017-12-06] MEDS: MULTIVITAMINS/MINERALS THERAP 1 TAB PO (08:49)
[2017-12-06] MEDS: PERCOCET 5MG/325MG TAB PO (14:24)
== END 2017-12-06 14:31 | disposition home or self-care (01) | DRG 493 ==
LOC: M ED 11:17 → M ED INP 16:51 → M MS5PR 19:50
PROC: 0QSG04Z Reposition Right Tibia with Internal Fixation Device, Open Approach (ICD-10-PCS; principal; 2017-12-03 14:30)
DX: S82.101A Unspecified fracture of upper end of right tibia, initial encounter for closed fracture (principal); D62 Acute posthemorrhagic anemia; S82.831A Other fracture of upper and lower end of right fibula, initial encounter for closed fracture; W19.XXXA Unspecified fall, initial encounter; Y92.531 Health care provider office as the place of occurrence of the external cause; I10 Essential (primary) hypertension; F32.9 Major depressive disorder, single episode, unspecified; J30.9 Allergic rhinitis, unspecified; M19.90 Unspecified osteoarthritis, unspecified site; K21.9 Gastro-esophageal reflux disease without esophagitis; M81.0 Age-related osteoporosis without current pathological fracture; Z79.899 Other long term (current) drug therapy; Z88.5 Allergy status to narcotic agent; E78.5 Hyperlipidemia, unspecified

== ENCOUNTER 2017-12-06 14:35 | Inpatient (IN) | payer MEDICARE, OTHER ==
[2017-12-06] MEDS: DOCUSATE SODIUM 100 MG CAP PO (09:00)
[~2017-12-06 14:35] MED LIST changes: -/HCTZ25TA PO; -ALEV220C2 PO; -ASTE137S; -ATOR1TAB19 PO; +BISACODYL 10 MG SUPP PR; +BISACODYL 5 MG TAB PO; -CYCL5TA PO; -DOCU100C16 PO; -DOCU10ELUD PO; -DULO1CAP2 PO; -DULO30CA PO; -FELO2.5T PO; -FIBE625T PO; +FLEET ENEMA PR; -GABA300C2 PO; -LATA0.00 OD; -LATA0.00 OS; -LATA5OPD OD; -META800T82 PO; -MOBI15TA PO; -MULTTAB4 PO; -OMEP20CA3 PO; +ONDANSETRON 4 MG TAB (S0181) PO; +ONDANSETRON 4MG/2ML VIAL (J2405) IM; -OSCA200T PO; -PERCOCET PO; -POTA10TA PO; -PREG50CA PO; -QUET1TAB7 PO; +SIMETHICONE 80 MG CHEW TAB PO; -SYSTANE BALANCE OU; -TIZA2CAP3 PO; -TRAM50TA2 PO; -TYLE1TAB5 PO; -ULTR37.539 PO; -ULTR37.54 PO; -ULTR50TA PO; -[UNRECOGNIZED DRUG - CODE] PO; +diphenhydrAMINE 25 MG CAP PO
[2017-12-06] MEDS: RIVAROXABAN 10 MG TAB (XARELTO) PO (17:53)
[2017-12-06] MEDS: LATANOPROST 0.005% OPHTH SOLN 2.5 ML OS (21:03)
[2017-12-06] MEDS: SENNA 8.6 MG TAB (SENOKOT) PO (21:03)
[2017-12-06] MEDS: QUEtiapine FUMARATE 25 MG TAB PO (21:03)
[2017-12-06] MEDS: ATORVASTATIN 10 MG TAB PO (21:03)
[2017-12-06] MEDS: PERCOCET 5MG/325MG TAB PO (21:20)
[2017-12-07] MEDS: PERCOCET 5MG/325MG TAB PO ×3 (07:29→20:58)
[2017-12-07 08:20] LABS: BASO # 0.1 10^3/uL (0.0-0.2); BASO % 0.7 % (0.0-1.0); EOS # 0.3 10^3/uL (0.0-0.50); EOS % 4.8 % (0.0-3.0); HEMATOCRIT 25.8 % (36.0-47.0); HEMOGLOBIN 8.2 g/dl (12.0-15.5); IMMATURE GRANULOCYTE % 0.4 % (0-3.0); LYMPH # 1.3 10^3/uL (1.5-4.5); LYMPH % 18.9 % (24.0-44.0); MEAN CORPUSCULAR HEMOGLOBIN 31.7 pg (27.0-33.0); MEAN CORPUSCULAR HGB CONC 31.8 g/dl (32.0-36.5); MEAN CORPUSCULAR VOLUME 99.6 fl (80.0-96.0); MONO # 0.7 10^3/uL (0.0-0.8); NEUTROPHILS # 4.3 10^3/uL (1.8-7.7); NEUTROPHILS % 65.2 % (36.0-66.0); PLATELET COUNT, AUTOMATED 309 10^3/uL (150-450); RED BLOOD COUNT 2.59 10^6/uL (4.00-5.40); RED CELL DISTRIBUTION WIDTH 14.6 % (11.5-14.5); WHITE BLOOD COUNT 6.7 10^3/uL (4.0-10.0)
[2017-12-07 08:49] LABS: ALBUMIN 2.2 GM/DL (3.2-5.2); ALBUMIN/GLOBULIN RATIO 0.76 (1.00-1.93); ALKALINE PHOSPHATASE 331 U/L (45-117); ALT/SGPT 353 U/L (12-78); ANION GAP 8 MEQ/L (8-16); AST/SGOT 272 U/L (7-37); BILIRUBIN,TOTAL 0.6 MG/DL (0.2-1.0); BLOOD UREA NITROGEN 27 MG/DL (7-18); CALCIUM LEVEL 8.2 MG/DL (8.8-10.2); CARBON DIOXIDE LEVEL 30 MEQ/L (21-32); CHLORIDE LEVEL 108 MEQ/L (98-107); CREATININE FOR GFR 0.68 MG/DL (0.55-1.30); GLOMERULAR FILTRATION RATE > 60.0 (>32); GLUCOSE, FASTING 102 MG/DL (70-100); POTASSIUM SERUM 4.1 MEQ/L (3.5-5.1); SODIUM LEVEL 146 MEQ/L (136-145); TOTAL PROTEIN 5.1 GM/DL (6.4-8.2)
[2017-12-07] MEDS: FELODIPINE 2.5 MG PO (09:27)
[2017-12-07] MEDS: QUEtiapine FUMARATE 50 MG TAB PO (09:28)
[2017-12-07] MEDS: MULTIVITAMINS/MINERALS THERAP 1 TAB PO (09:28)
[2017-12-07] MEDS: VITAMIN D 1,000 INTERNATIONAL UNITS TABLET PO (09:29)
[2017-12-07] MEDS: DOCUSATE SODIUM 100 MG CAP PO (09:29)
[2017-12-07] MEDS: DULoxetine 30 MG CAP (CYMBALTA) PO (09:29)
[2017-12-07] MEDS: OMEPRAZOLE 20 MG CAP PO (09:29)
[2017-12-07] MEDS: MIRALAX *UNIT DOSE* 17GM PACKET PO (09:30)
[2017-12-07] MEDS: RIVAROXABAN 10 MG TAB (XARELTO) PO (17:13)
[2017-12-07] MEDS: LATANOPROST 0.005% OPHTH SOLN 2.5 ML OS (20:57)
[2017-12-07] MEDS: SENNA 8.6 MG TAB (SENOKOT) PO (20:57)
[2017-12-07] MEDS: ATORVASTATIN 10 MG TAB PO (20:57)
[2017-12-07] MEDS: QUEtiapine FUMARATE 25 MG TAB PO (20:57)
[2017-12-08] MEDS: PERCOCET 5MG/325MG TAB PO ×2 (06:19→15:09)
[2017-12-08] MEDS: VITAMIN D 1,000 INTERNATIONAL UNITS TABLET PO (08:34)
[2017-12-08] MEDS: QUEtiapine FUMARATE 50 MG TAB PO (08:34)
[2017-12-08] MEDS: DULoxetine 30 MG CAP (CYMBALTA) PO (08:34)
[2017-12-08] MEDS: MIRALAX *UNIT DOSE* 17GM PACKET PO (08:34)
[2017-12-08] MEDS: DOCUSATE SODIUM 100 MG CAP PO (08:34)
[2017-12-08] MEDS: OMEPRAZOLE 20 MG CAP PO (08:34)
[2017-12-08] MEDS: FELODIPINE 2.5 MG PO (08:34)
[2017-12-08] MEDS: MULTIVITAMINS/MINERALS THERAP 1 TAB PO (08:34)
[2017-12-08 09:13] LABS: HEPATITIS A IgG TOTAL Negative (Negative)
[2017-12-08] MEDS: RIVAROXABAN 10 MG TAB (XARELTO) PO (18:10)
[2017-12-08] MEDS: ATORVASTATIN 10 MG TAB PO (20:33)
[2017-12-08] MEDS: QUEtiapine FUMARATE 25 MG TAB PO (20:34)
[2017-12-08] MEDS: SENNA 8.6 MG TAB (SENOKOT) PO (20:34)
[2017-12-08] MEDS: ACETAMINOPHEN 500 MG TAB PO (20:34)
[2017-12-08] MEDS: LATANOPROST 0.005% OPHTH SOLN 2.5 ML OD (20:35)
[2017-12-08] MEDS: LATANOPROST 0.005% OPHTH SOLN 2.5 ML OS (20:35)
[2017-12-09] MEDS: VITAMIN D 1,000 INTERNATIONAL UNITS TABLET PO (08:43)
[2017-12-09] MEDS: OMEPRAZOLE 20 MG CAP PO (08:43)
[2017-12-09] MEDS: QUEtiapine FUMARATE 50 MG TAB PO (08:43)
[2017-12-09] MEDS: DULoxetine 30 MG CAP (CYMBALTA) PO (08:43)
[2017-12-09] MEDS: FLUTICASONE 0.05% CREAM 30GM (CUTIVATE) TOP (08:43)
[2017-12-09] MEDS: MULTIVITAMINS/MINERALS THERAP 1 TAB PO (08:43)
[2017-12-09] MEDS: MIRALAX *UNIT DOSE* 17GM PACKET PO (08:44)
[2017-12-09] MEDS: DOCUSATE SODIUM 100 MG CAP PO (08:44)
[2017-12-09] MEDS: FELODIPINE 2.5 MG PO (08:44)
[2017-12-09] MEDS: PERCOCET 5MG/325MG TAB PO ×2 (12:07→19:51)
[2017-12-09] MEDS: RIVAROXABAN 10 MG TAB (XARELTO) PO (17:29)
[2017-12-09] MEDS: SENNA 8.6 MG TAB (SENOKOT) PO (19:45)
[2017-12-09] MEDS: LATANOPROST 0.005% OPHTH SOLN 2.5 ML OS (19:51)
[2017-12-09] MEDS: QUEtiapine FUMARATE 25 MG TAB PO (19:51)
[2017-12-09] MEDS: ATORVASTATIN 10 MG TAB PO (19:51)
[2017-12-10] MEDS: PERCOCET 5MG/325MG TAB PO (01:48)
[2017-12-10] MEDS: VITAMIN D 1,000 INTERNATIONAL UNITS TABLET PO (08:24)
[2017-12-10] MEDS: DULoxetine 30 MG CAP (CYMBALTA) PO (08:24)
[2017-12-10] MEDS: QUEtiapine FUMARATE 50 MG TAB PO (08:24)
[2017-12-10] MEDS: OMEPRAZOLE 20 MG CAP PO (08:24)
[2017-12-10] MEDS: MULTIVITAMINS/MINERALS THERAP 1 TAB PO (08:24)
[2017-12-10] MEDS: FELODIPINE 2.5 MG PO (08:25)
[2017-12-10] MEDS: ACETAMINOPHEN 500 MG TAB PO (08:26)
[2017-12-10] MEDS: MIRALAX *UNIT DOSE* 17GM PACKET PO (08:26)
[2017-12-10] MEDS: DOCUSATE SODIUM 100 MG CAP PO (08:26)
[2017-12-10 09:44] LABS: ALBUMIN 2.7 GM/DL (3.2-5.2); ALBUMIN/GLOBULIN RATIO 0.84 (1.00-1.93); ALKALINE PHOSPHATASE 438 U/L (45-117); ALT/SGPT 209 U/L (12-78); ANION GAP 8 MEQ/L (8-16); AST/SGOT 84 U/L (7-37); BILIRUBIN,TOTAL 0.8 MG/DL (0.2-1.0); BLOOD UREA NITROGEN 20 MG/DL (7-18); CALCIUM LEVEL 8.8 MG/DL (8.8-10.2); CARBON DIOXIDE LEVEL 31 MEQ/L (21-32); CHLORIDE LEVEL 106 MEQ/L (98-107); CREATININE FOR GFR 0.73 MG/DL (0.55-1.30); GLOMERULAR FILTRATION RATE > 60.0 (>32); GLUCOSE, FASTING 104 MG/DL (70-100); POTASSIUM SERUM 4.2 MEQ/L (3.5-5.1); SODIUM LEVEL 145 MEQ/L (136-145); TOTAL PROTEIN 5.9 GM/DL (6.4-8.2)
[2017-12-10 09:46] LABS: HEMATOCRIT 28.2 % (36.0-47.0); MEAN CORPUSCULAR HEMOGLOBIN 31.1 pg (27.0-33.0); MEAN CORPUSCULAR HGB CONC 31.9 g/dl (32.0-36.5); MEAN CORPUSCULAR VOLUME 97.6 fl (80.0-96.0); PLATELET COUNT, AUTOMATED 527 10^3/uL (150-450); RED BLOOD COUNT 2.89 10^6/uL (4.00-5.40); RED CELL DISTRIBUTION WIDTH 14.6 % (11.5-14.5); WHITE BLOOD COUNT 7.9 10^3/uL (4.0-10.0)
[2017-12-10 10:51] LABS: HEPATITIS B SURFACE ANTIBODY NEGATIVE (POSITIVE)
[2017-12-10 10:56] LABS: HEPATITIS B SURFACE ANTIGEN NEGATIVE (NEGATIVE)
[2017-12-10 11:23] LABS: HEPATITIS C VIRUS ABY INDEX 0.2 INDEX (<0.8)
[2017-12-10] MEDS: RIVAROXABAN 10 MG TAB (XARELTO) PO (17:46)
[2017-12-10] MEDS: ATORVASTATIN 10 MG TAB PO (21:22)
[2017-12-10] MEDS: QUEtiapine FUMARATE 25 MG TAB PO (21:22)
[2017-12-10] MEDS: FLUTICASONE 0.05% CREAM 30GM (CUTIVATE) TOP (21:22)
[2017-12-10] MEDS: LATANOPROST 0.005% OPHTH SOLN 2.5 ML OS (21:24)
[2017-12-10] MEDS: SENNA 8.6 MG TAB (SENOKOT) PO (21:28)
[2017-12-11] MEDS: PERCOCET 5MG/325MG TAB PO (00:25)
[2017-12-11] MEDS: ACETAMINOPHEN 500 MG TAB PO ×2 (06:40→20:17)
[2017-12-11] MEDS: MIRALAX *UNIT DOSE* 17GM PACKET PO (08:34)
[2017-12-11] MEDS: MULTIVITAMINS/MINERALS THERAP 1 TAB PO (08:34)
[2017-12-11] MEDS: QUEtiapine FUMARATE 50 MG TAB PO (08:34)
[2017-12-11] MEDS: VITAMIN D 1,000 INTERNATIONAL UNITS TABLET PO (08:34)
[2017-12-11] MEDS: FELODIPINE 2.5 MG PO (08:34)
[2017-12-11] MEDS: OMEPRAZOLE 20 MG CAP PO (08:34)
[2017-12-11] MEDS: DOCUSATE SODIUM 100 MG CAP PO (08:34)
[2017-12-11] MEDS: DULoxetine 30 MG CAP (CYMBALTA) PO (08:34)
[2017-12-11] MEDS: FLUTICASONE 0.05% CREAM 30GM (CUTIVATE) TOP (08:37)
[2017-12-11] MEDS: RIVAROXABAN 10 MG TAB (XARELTO) PO (17:39)
[2017-12-11] MEDS: SENNA 8.6 MG TAB (SENOKOT) PO (20:16)
[2017-12-11] MEDS: LATANOPROST 0.005% OPHTH SOLN 2.5 ML OS (20:16)
[2017-12-11] MEDS: QUEtiapine FUMARATE 25 MG TAB PO (20:17)
[2017-12-11] MEDS: ATORVASTATIN 10 MG TAB PO (20:17)
[2017-12-12] MEDS: PERCOCET 5MG/325MG TAB PO ×5 (00:07→21:21)
[2017-12-12 07:36] LABS: HEMATOCRIT 25.8 % (36.0-47.0); HEMOGLOBIN 8.2 g/dl (12.0-15.5); MEAN CORPUSCULAR HEMOGLOBIN 31.2 pg (27.0-33.0); MEAN CORPUSCULAR HGB CONC 31.8 g/dl (32.0-36.5); MEAN CORPUSCULAR VOLUME 98.1 fl (80.0-96.0); PLATELET COUNT, AUTOMATED 479 10^3/uL (150-450); RED BLOOD COUNT 2.63 10^6/uL (4.00-5.40); RED CELL DISTRIBUTION WIDTH 14.6 % (11.5-14.5); WHITE BLOOD COUNT 7.1 10^3/uL (4.0-10.0)
[2017-12-12 07:44] LABS: ALBUMIN 2.4 GM/DL (3.2-5.2); ALBUMIN/GLOBULIN RATIO 0.77 (1.00-1.93); ALKALINE PHOSPHATASE 347 U/L (45-117); ALT/SGPT 117 U/L (12-78); ANION GAP 4 MEQ/L (8-16); AST/SGOT 37 U/L (7-37); BILIRUBIN,TOTAL 0.6 MG/DL (0.2-1.0); BLOOD UREA NITROGEN 19 MG/DL (7-18); CALCIUM LEVEL 8.2 MG/DL (8.8-10.2); CARBON DIOXIDE LEVEL 30 MEQ/L (21-32); CHLORIDE LEVEL 110 MEQ/L (98-107); CREATININE FOR GFR 0.61 MG/DL (0.55-1.30); GLOMERULAR FILTRATION RATE > 60.0 (>32); GLUCOSE, FASTING 107 MG/DL (70-100); POTASSIUM SERUM 4.1 MEQ/L (3.5-5.1); SODIUM LEVEL 144 MEQ/L (136-145); TOTAL PROTEIN 5.5 GM/DL (6.4-8.2)
[2017-12-12] MEDS: MULTIVITAMINS/MINERALS THERAP 1 TAB PO (08:17)
[2017-12-12] MEDS: FELODIPINE 2.5 MG PO (08:17)
[2017-12-12] MEDS: QUEtiapine FUMARATE 50 MG TAB PO (08:18)
[2017-12-12] MEDS: MIRALAX *UNIT DOSE* 17GM PACKET PO (08:18)
[2017-12-12] MEDS: DOCUSATE SODIUM 100 MG CAP PO (08:18)
[2017-12-12] MEDS: DULoxetine 30 MG CAP (CYMBALTA) PO (08:18)
[2017-12-12] MEDS: VITAMIN D 1,000 INTERNATIONAL UNITS TABLET PO (08:18)
[2017-12-12] MEDS: OMEPRAZOLE 20 MG CAP PO (08:18)
[2017-12-12] MEDS: RIVAROXABAN 10 MG TAB (XARELTO) PO (16:58)
[2017-12-12] MEDS: ATORVASTATIN 10 MG TAB PO (21:21)
[2017-12-12] MEDS: LATANOPROST 0.005% OPHTH SOLN 2.5 ML OS (21:21)
[2017-12-12] MEDS: SENNA 8.6 MG TAB (SENOKOT) PO (21:21)
[2017-12-12] MEDS: QUEtiapine FUMARATE 25 MG TAB PO (21:21)
[2017-12-13] MEDS: OMEPRAZOLE 20 MG CAP PO (08:48)
[2017-12-13] MEDS: VITAMIN D 1,000 INTERNATIONAL UNITS TABLET PO (08:48)
[2017-12-13] MEDS: FELODIPINE 2.5 MG PO (08:48)
[2017-12-13] MEDS: PERCOCET 5MG/325MG TAB PO ×3 (08:48→20:04)
[2017-12-13] MEDS: DULoxetine 30 MG CAP (CYMBALTA) PO (08:48)
[2017-12-13] MEDS: QUEtiapine FUMARATE 50 MG TAB PO (08:48)
[2017-12-13] MEDS: DOCUSATE SODIUM 100 MG CAP PO (08:48)
[2017-12-13] MEDS: MIRALAX *UNIT DOSE* 17GM PACKET PO (08:49)
[2017-12-13] MEDS: MULTIVITAMINS/MINERALS THERAP 1 TAB PO (08:49)
[2017-12-13] MEDS: BISACODYL 5 MG TAB PO (12:46)
[2017-12-13 12:58] LABS: BASO # 0.1 10^3/uL (0.0-0.2); BASO % 0.6 % (0.0-1.0); EOS # 0.1 10^3/uL (0.0-0.50); EOS % 1.2 % (0.0-3.0); HEMOGLOBIN 8.9 g/dl (12.0-15.5); IMMATURE GRANULOCYTE % 0.6 % (0-3.0); LYMPH % 10.1 % (24.0-44.0); MEAN CORPUSCULAR HEMOGLOBIN 30.9 pg (27.0-33.0); MEAN CORPUSCULAR HGB CONC 30.7 g/dl (32.0-36.5); MEAN CORPUSCULAR VOLUME 100.7 fl (80.0-96.0); MONO # 0.8 10^3/uL (0.0-0.8); MONO % 8.3 % (0.0-5.0); NEUTROPHILS # 8.1 10^3/uL (1.8-7.7); NEUTROPHILS % 79.2 % (36.0-66.0); PLATELET COUNT, AUTOMATED 629 10^3/uL (150-450); RED BLOOD COUNT 2.88 10^6/uL (4.00-5.40); RED CELL DISTRIBUTION WIDTH 14.8 % (11.5-14.5); WHITE BLOOD COUNT 10.2 10^3/uL (4.0-10.0)
[2017-12-13 13:20] LABS: C REACTIVE PROTEIN QUANTITATIV 1.49 MG/DL (0.00-0.30)
[2017-12-13 14:21] LABS: ERYTHROCYTE SEDIMENTATION RATE 61 mm/hr (0-42)
[2017-12-13] MEDS: CEPHALEXIN 500 MG CAP PO (17:53)
[2017-12-13] MEDS: RIVAROXABAN 10 MG TAB (XARELTO) PO (17:53)
[2017-12-13] MEDS: ATORVASTATIN 10 MG TAB PO (20:03)
[2017-12-13] MEDS: SENNA 8.6 MG TAB (SENOKOT) PO (20:03)
[2017-12-13] MEDS: QUEtiapine FUMARATE 25 MG TAB PO (20:03)
[2017-12-13] MEDS: LATANOPROST 0.005% OPHTH SOLN 2.5 ML OS (20:07)
[2017-12-14] MEDS: CEPHALEXIN 500 MG CAP PO ×5 (00:06→23:37)
[2017-12-14] MEDS: PERCOCET 5MG/325MG TAB PO ×4 (06:07→21:37)
[2017-12-14] MEDS: MULTIVITAMINS/MINERALS THERAP 1 TAB PO (09:31)
[2017-12-14] MEDS: OMEPRAZOLE 20 MG CAP PO (09:31)
[2017-12-14] MEDS: DOCUSATE SODIUM 100 MG CAP PO (09:32)
[2017-12-14] MEDS: QUEtiapine FUMARATE 50 MG TAB PO (09:32)
[2017-12-14] MEDS: DULoxetine 30 MG CAP (CYMBALTA) PO (09:32)
[2017-12-14] MEDS: VITAMIN D 1,000 INTERNATIONAL UNITS TABLET PO (09:32)
[2017-12-14] MEDS: MIRALAX *UNIT DOSE* 17GM PACKET PO (09:32)
[2017-12-14] MEDS: FELODIPINE 2.5 MG PO (10:10)
[2017-12-14] MEDS: LACTOBACILLUS ACIDOPHILUS CAP (BACID) PO ×2 (14:54→21:36)
[2017-12-14] MEDS: RIVAROXABAN 10 MG TAB (XARELTO) PO (17:05)
[2017-12-14] MEDS: QUEtiapine FUMARATE 25 MG TAB PO (21:36)
[2017-12-14] MEDS: LATANOPROST 0.005% OPHTH SOLN 2.5 ML OS (21:36)
[2017-12-14] MEDS: SENNA 8.6 MG TAB (SENOKOT) PO (21:37)
[2017-12-14] MEDS: ATORVASTATIN 10 MG TAB PO (21:37)
[2017-12-15] MEDS: CEPHALEXIN 500 MG CAP PO ×4 (06:10→23:32)
[2017-12-15] MEDS: PERCOCET 5MG/325MG TAB PO ×3 (07:17→21:08)
[2017-12-15] MEDS: MIRALAX *UNIT DOSE* 17GM PACKET PO (08:11)
[2017-12-15] MEDS: MULTIVITAMINS/MINERALS THERAP 1 TAB PO (08:11)
[2017-12-15] MEDS: DULoxetine 30 MG CAP (CYMBALTA) PO (08:11)
[2017-12-15] MEDS: LACTOBACILLUS ACIDOPHILUS CAP (BACID) PO ×2 (08:11→21:07)
[2017-12-15] MEDS: OMEPRAZOLE 20 MG CAP PO (08:11)
[2017-12-15] MEDS: FELODIPINE 2.5 MG PO (08:11)
[2017-12-15] MEDS: VITAMIN D 1,000 INTERNATIONAL UNITS TABLET PO (08:11)
[2017-12-15] MEDS: DOCUSATE SODIUM 100 MG CAP PO (08:11)
[2017-12-15] MEDS: QUEtiapine FUMARATE 50 MG TAB PO (08:11)
[2017-12-15] MEDS: RIVAROXABAN 10 MG TAB (XARELTO) PO (17:08)
[2017-12-15] MEDS: ATORVASTATIN 10 MG TAB PO (21:07)
[2017-12-15] MEDS: LATANOPROST 0.005% OPHTH SOLN 2.5 ML OS (21:08)
[2017-12-15] MEDS: LATANOPROST 0.005% OPHTH SOLN 2.5 ML OD (21:08)
[2017-12-15] MEDS: QUEtiapine FUMARATE 25 MG TAB PO (21:08)
[2017-12-15] MEDS: SENNA 8.6 MG TAB (SENOKOT) PO (21:08)
[2017-12-16] MEDS: CEPHALEXIN 500 MG CAP PO ×3 (05:55→17:14)
[2017-12-16] MEDS: DULoxetine 30 MG CAP (CYMBALTA) PO (08:35)
[2017-12-16] MEDS: QUEtiapine FUMARATE 50 MG TAB PO (08:35)
[2017-12-16] MEDS: OMEPRAZOLE 20 MG CAP PO (08:35)
[2017-12-16] MEDS: DOCUSATE SODIUM 100 MG CAP PO (08:35)
[2017-12-16] MEDS: VITAMIN D 1,000 INTERNATIONAL UNITS TABLET PO (08:35)
[2017-12-16] MEDS: LACTOBACILLUS ACIDOPHILUS CAP (BACID) PO ×2 (08:35→21:12)
[2017-12-16] MEDS: MULTIVITAMINS/MINERALS THERAP 1 TAB PO (08:35)
[2017-12-16] MEDS: PERCOCET 5MG/325MG TAB PO ×3 (08:36→21:12)
[2017-12-16] MEDS: MIRALAX *UNIT DOSE* 17GM PACKET PO (08:36)
[2017-12-16] MEDS: FELODIPINE 2.5 MG PO (09:00)
[2017-12-16] MEDS: RIVAROXABAN 10 MG TAB (XARELTO) PO (17:14)
[2017-12-16] MEDS: LATANOPROST 0.005% OPHTH SOLN 2.5 ML OS (21:00)
[2017-12-16] MEDS: ATORVASTATIN 10 MG TAB PO (21:11)
[2017-12-16] MEDS: SENNA 8.6 MG TAB (SENOKOT) PO (21:11)
[2017-12-16] MEDS: QUEtiapine FUMARATE 25 MG TAB PO (21:12)
[2017-12-17] MEDS: CEPHALEXIN 500 MG CAP PO ×5 (00:46→23:58)
[2017-12-17] MEDS: PERCOCET 5MG/325MG TAB PO ×4 (06:03→18:23)
[2017-12-17] MEDS: QUEtiapine FUMARATE 50 MG TAB PO (09:46)
[2017-12-17] MEDS: DOCUSATE SODIUM 100 MG CAP PO (09:47)
[2017-12-17] MEDS: DULoxetine 30 MG CAP (CYMBALTA) PO (09:47)
[2017-12-17] MEDS: LACTOBACILLUS ACIDOPHILUS CAP (BACID) PO ×2 (09:47→21:12)
[2017-12-17] MEDS: VITAMIN D 1,000 INTERNATIONAL UNITS TABLET PO (09:47)
[2017-12-17] MEDS: OMEPRAZOLE 20 MG CAP PO (09:47)
[2017-12-17] MEDS: MULTIVITAMINS/MINERALS THERAP 1 TAB PO (09:47)
[2017-12-17] MEDS: MIRALAX *UNIT DOSE* 17GM PACKET PO (09:48)
[2017-12-17] MEDS: FELODIPINE 2.5 MG PO (11:44)
[2017-12-17] MEDS: RIVAROXABAN 10 MG TAB (XARELTO) PO (17:16)
[2017-12-17] MEDS: ATORVASTATIN 10 MG TAB PO (21:12)
[2017-12-17] MEDS: QUEtiapine FUMARATE 25 MG TAB PO (21:13)
[2017-12-17] MEDS: LATANOPROST 0.005% OPHTH SOLN 2.5 ML OS (21:13)
[2017-12-17] MEDS: SENNA 8.6 MG TAB (SENOKOT) PO (21:13)
[2017-12-18] MEDS: PERCOCET 5MG/325MG TAB PO ×2 (02:38→11:03)
[2017-12-18] MEDS: CEPHALEXIN 500 MG CAP PO (05:37)
[2017-12-18] MEDS: ACETAMINOPHEN 500 MG TAB PO (09:41)
[2017-12-18] MEDS: MULTIVITAMINS/MINERALS THERAP 1 TAB PO (09:41)
[2017-12-18] MEDS: QUEtiapine FUMARATE 50 MG TAB PO (09:41)
[2017-12-18] MEDS: OMEPRAZOLE 20 MG CAP PO (09:42)
[2017-12-18] MEDS: MIRALAX *UNIT DOSE* 17GM PACKET PO (09:42)
[2017-12-18] MEDS: FELODIPINE 2.5 MG PO (09:42)
[2017-12-18] MEDS: VITAMIN D 1,000 INTERNATIONAL UNITS TABLET PO (09:42)
[2017-12-18] MEDS: LACTOBACILLUS ACIDOPHILUS CAP (BACID) PO (09:42)
[2017-12-18] MEDS: DOCUSATE SODIUM 100 MG CAP PO (09:42)
[2017-12-18] MEDS: DULoxetine 30 MG CAP (CYMBALTA) PO (09:42)
[2017-12-18] MEDS: LORazepam 0.5 MG TAB PO (11:04)
== END 2017-12-18 11:42 | DRG 561 ==
LOC: M PM&R 14:35
PROVIDERS: Physical Medicine & Rehabilitation
DX: S82.101D Unspecified fracture of upper end of right tibia, subsequent encounter for closed fracture with routine healing (principal); S82.401D Unspecified fracture of shaft of right fibula, subsequent encounter for closed fracture with routine healing; K59.00 Constipation, unspecified; I10 Essential (primary) hypertension; E78.5 Hyperlipidemia, unspecified; R74.0 Nonspecific elevation of levels of transaminase and lactic acid dehydrogenase [LDH]; M19.90 Unspecified osteoarthritis, unspecified site; K21.9 Gastro-esophageal reflux disease without esophagitis; M81.0 Age-related osteoporosis without current pathological fracture; F32.9 Major depressive disorder, single episode, unspecified; R53.81 Other malaise; D53.9 Nutritional anemia, unspecified; F29 Unspecified psychosis not due to a substance or known physiological condition; H40.9 Unspecified glaucoma; M54.2 Cervicalgia; R41.81 Age-related cognitive decline; Z79.899 Other long term (current) drug therapy; Z79.01 Long term (current) use of anticoagulants; Z88.5 Allergy status to narcotic agent; Z98.49 Cataract extraction status, unspecified eye; Z96.9 Presence of functional implant, unspecified; Z85.828 Personal history of other malignant neoplasm of skin; Y92.531 Health care provider office as the place of occurrence of the external cause; Z87.891 Personal history of nicotine dependence; Z90.710 Acquired absence of both cervix and uterus; Y93.01 Activity, walking, marching and hiking; W01.0XXD Fall on same level from slipping, tripping and stumbling without subsequent striking against object, subsequent encounter

== ENCOUNTER → 2017-12-20 | Outpatient (REF) ==
[2017-12-20 15:06] LABS: HEMATOCRIT 31.3 % (36.0-47.0); HEMOGLOBIN 9.8 g/dl (12.0-15.5); MEAN CORPUSCULAR HEMOGLOBIN 30.6 pg (27.0-33.0); MEAN CORPUSCULAR HGB CONC 31.3 g/dl (32.0-36.5); MEAN CORPUSCULAR VOLUME 97.8 fl (80.0-96.0); PLATELET COUNT, AUTOMATED 782 10^3/uL (150-450); RED CELL DISTRIBUTION WIDTH 14.7 % (11.5-14.5); WHITE BLOOD COUNT 5.6 10^3/uL (4.0-10.0)
[2017-12-20 15:12] LABS: ANION GAP 6 MEQ/L (8-16); BLOOD UREA NITROGEN 17 MG/DL (7-18); CARBON DIOXIDE LEVEL 31 MEQ/L (21-32); CHLORIDE LEVEL 108 MEQ/L (98-107); CREATININE FOR GFR 0.75 MG/DL (0.55-1.30); FERRITIN 133 NG/ML (8-252); GLOMERULAR FILTRATION RATE > 60.0 (>32); GLUCOSE, FASTING 162 MG/DL (70-100); IRON (FE) 45 UG/DL (50-170); PERCENT SATURATION 15.8 % (13.2-45.0); POTASSIUM SERUM 3.9 MEQ/L (3.5-5.1); SODIUM LEVEL 145 MEQ/L (136-145); TOTAL IRON BINDING CAPACITY 284 UG/DL (250-450)
== END ==
DX: L03.115 Cellulitis of right lower limb (principal); D64.9 Anemia, unspecified

== ENCOUNTER → 2017-12-28 | Outpatient (REF) ==
[2017-12-28 11:25] LABS: HEMATOCRIT 35.2 % (36.0-47.0); HEMOGLOBIN 10.7 g/dl (12.0-15.5); MEAN CORPUSCULAR HGB CONC 30.4 g/dl (32.0-36.5); MEAN CORPUSCULAR VOLUME 98.6 fl (80.0-96.0); PLATELET COUNT, AUTOMATED 491 10^3/uL (150-450); RED BLOOD COUNT 3.57 10^6/uL (4.00-5.40); RED CELL DISTRIBUTION WIDTH 14.6 % (11.5-14.5)
[2017-12-28 11:56] LABS: ANION GAP 8 MEQ/L (8-16); BLOOD UREA NITROGEN 18 MG/DL (7-18); CARBON DIOXIDE LEVEL 29 MEQ/L (21-32); CHLORIDE LEVEL 105 MEQ/L (98-107); CREATININE FOR GFR 0.75 MG/DL (0.55-1.30); GLOMERULAR FILTRATION RATE > 60.0 (>32); GLUCOSE, FASTING 153 MG/DL (70-100); SODIUM LEVEL 142 MEQ/L (136-145)
== END ==
DX: D64.9 Anemia, unspecified (principal); L03.115 Cellulitis of right lower limb

== ENCOUNTER → 2018-01-22 | Outpatient (REF) | payer MEDICARE, OTHER ==
[2018-01-22 13:45] LABS: BASO # 0.1 10^3/uL (0.0-0.2); BASO % 0.9 % (0.0-1.0); EOS # 0.2 10^3/uL (0.0-0.50); EOS % 2.8 % (0.0-3.0); HEMATOCRIT 37.7 % (36.0-47.0); HEMOGLOBIN 11.6 g/dl (12.0-15.5); IMMATURE GRANULOCYTE % 0.1 % (0-3.0); LYMPH # 1.5 10^3/uL (1.5-4.5); LYMPH % 21.5 % (24.0-44.0); MEAN CORPUSCULAR HEMOGLOBIN 29.7 pg (27.0-33.0); MEAN CORPUSCULAR HGB CONC 30.8 g/dl (32.0-36.5); MEAN CORPUSCULAR VOLUME 96.4 fl (80.0-96.0); MONO # 0.6 10^3/uL (0.0-0.8); MONO % 8.7 % (0.0-5.0); NEUTROPHILS # 4.6 10^3/uL (1.8-7.7); PLATELET COUNT, AUTOMATED 405 10^3/uL (150-450); RED BLOOD COUNT 3.91 10^6/uL (4.00-5.40); RED CELL DISTRIBUTION WIDTH 14.5 % (11.5-14.5)
== END ==
LOC: M SFHCPLAZ 12:43
DX: R60.0 Localized edema (principal)
CPT/HCPCS: 85025

== ENCOUNTER → 2018-02-06 | Outpatient (CLI) | payer MEDICARE, OTHER | LOC: M PAIN 10:30 | DX: M96.1 Postlaminectomy syndrome, not elsewhere classified (principal); M15.9 Polyosteoarthritis, unspecified; I10 Essential (primary) hypertension; E78.5 Hyperlipidemia, unspecified; M81.0 Age-related osteoporosis without current pathological fracture; F32.9 Major depressive disorder, single episode, unspecified; J30.9 Allergic rhinitis, unspecified; Z79.899 Other long term (current) drug therapy; Z87.891 Personal history of nicotine dependence | CPT/HCPCS: G0463 ==

== ENCOUNTER → 2018-04-19 | Outpatient (REF) | payer MEDICARE, OTHER ==
[2018-04-19 18:05] LABS: BASO # 0.1 10^3/uL (0.0-0.2); BASO % 0.4 % (0.0-1.0); EOS % 0.3 % (0.0-3.0); HEMATOCRIT 36.1 % (36.0-47.0); IMMATURE GRANULOCYTE % 0.3 % (0-3.0); LYMPH # 1.4 10^3/uL (1.5-4.5); LYMPH % 12.2 % (24.0-44.0); MEAN CORPUSCULAR HEMOGLOBIN 28.1 pg (27.0-33.0); MEAN CORPUSCULAR HGB CONC 30.5 g/dl (32.0-36.5); MEAN CORPUSCULAR VOLUME 92.3 fl (80.0-96.0); MONO # 0.9 10^3/uL (0.0-0.8); MONO % 7.8 % (0.0-5.0); NEUTROPHILS # 9.1 10^3/uL (1.8-7.7); PLATELET COUNT, AUTOMATED 895 10^3/uL (150-450); RED BLOOD COUNT 3.91 10^6/uL (4.00-5.40); RED CELL DISTRIBUTION WIDTH 14.8 % (11.5-14.5); WHITE BLOOD COUNT 11.5 10^3/uL (4.0-10.0)
[2018-04-19 18:10] LABS: ALBUMIN 2.5 GM/DL (3.2-5.2); ALBUMIN/GLOBULIN RATIO 0.63 (1.00-1.93); ALKALINE PHOSPHATASE 519 U/L (45-117); ALT/SGPT 32 U/L (12-78); AMYLASE 33 U/L (25-115); ANION GAP 9 MEQ/L (8-16); AST/SGOT 44 U/L (7-37); BILIRUBIN,TOTAL 0.3 MG/DL (0.2-1.0); BLOOD UREA NITROGEN 33 MG/DL (7-18); CALCIUM LEVEL 9.3 MG/DL (8.8-10.2); CARBON DIOXIDE LEVEL 29 MEQ/L (21-32); CHLORIDE LEVEL 105 MEQ/L (98-107); CREATININE FOR GFR 0.98 MG/DL (0.55-1.30); GLUCOSE, FASTING 112 MG/DL (70-100); LIPASE 42 U/L (73-393); POTASSIUM SERUM 4.4 MEQ/L (3.5-5.1); SODIUM LEVEL 143 MEQ/L (136-145); TOTAL PROTEIN 6.5 GM/DL (6.4-8.2)
== END ==
LOC: M SFHCPLAZ 14:31
DX: R10.32 Left lower quadrant pain (principal); R05 Cough
CPT/HCPCS: 82150

== ENCOUNTER → 2018-04-19 | Outpatient (CLI) | payer MEDICARE, OTHER | LOC: M SMT 14:56 | DX: R91.8 Other nonspecific abnormal finding of lung field (principal); R10.32 Left lower quadrant pain; R05 Cough; Z96.89 Presence of other specified functional implants | CPT/HCPCS: 71045; 82150 ==

== ENCOUNTER → 2018-04-23 | Outpatient (REF) | payer MEDICARE, OTHER ==
[2018-04-23 15:55] LABS: ALKALINE PHOSPHATASE 547 U/L (45-117); GAMMA GLUTAMYLTRANSPEPTIDASE 183 U/L (5-55); NT-PRO BNP 396 PG/ML (<450)
[2018-04-23 16:52] LABS: % LABILE ALKALINE PHOSPHATASE 76.7 %; LABILE ALKPHOS 420 U/L; STABLE ALKPHOS 127 U/L
== END ==
LOC: M SFHCPLAZ 13:57
DX: J90 Pleural effusion, not elsewhere classified (principal); R74.8 Abnormal levels of other serum enzymes
CPT/HCPCS: 84078

== ENCOUNTER → 2018-05-01 | Outpatient (CLI) | payer MEDICARE, OTHER ==
[~2018-05-01] MED LIST changes: -BISACODYL 10 MG SUPP PR; -BISACODYL 5 MG TAB PO; -FLEET ENEMA PR; +GASTROGRAFIN SOLUTION 30ML (Q9963) As Ordered; +ISOVUE-370 76% 100ML VIAL (Q9967) As Ordered; -ONDANSETRON 4 MG TAB (S0181) PO; -ONDANSETRON 4MG/2ML VIAL (J2405) IM; -SIMETHICONE 80 MG CHEW TAB PO; -diphenhydrAMINE 25 MG CAP PO
== END ==
LOC: M RAD 13:32
DX: R93.5 Abnormal findings on diagnostic imaging of other abdominal regions, including retroperitoneum (principal); J90 Pleural effusion, not elsewhere classified; R10.32 Left lower quadrant pain; R74.8 Abnormal levels of other serum enzymes
CPT/HCPCS: Q9963

== ENCOUNTER → 2018-05-02 | Outpatient (REF) | payer MEDICARE, OTHER ==
[2018-05-03 12:37] LABS: CARCINOEMBRYONIC ANTIGEN < 0.5 NG/ML (<2.5)
[2018-05-03 12:37] LABS: CA 125 779.5 U/ML (<30.2)
== END ==
LOC: M SFHCPLAZ 14:09
DX: N94.9 Unspecified condition associated with female genital organs and menstrual cycle (principal); R18.0 Malignant ascites; R11.0 Nausea; G31.83 Neurocognitive disorder with Lewy bodies; R53.1 Weakness
CPT/HCPCS: 82378

== ENCOUNTER 2018-05-09 17:38 | Inpatient (IN) | payer MEDICARE, OTHER ==
[2018-05-09] MEDS: MORPHINE 2 MG/ML 1ML SYRINGE (J2270) IV (18:38)
[2018-05-09] MEDS: NS 1,000 ML IV (18:38)
[2018-05-09] MEDS: ONDANSETRON 4MG/2ML VIAL (J2405) IV ×2 (18:38→22:42)
[2018-05-09 18:44] LABS: BASO % 0.2 % (0.0-1.0); HEMATOCRIT 37.7 % (36.0-47.0); IMMATURE GRANULOCYTE % 0.5 % (0-3.0); LYMPH # 0.4 10^3/uL (1.5-4.5); LYMPH % 2.4 % (24.0-44.0); MEAN CORPUSCULAR HEMOGLOBIN 28.4 pg (27.0-33.0); MEAN CORPUSCULAR HGB CONC 31.8 g/dl (32.0-36.5); MEAN CORPUSCULAR VOLUME 89.3 fl (80.0-96.0); MONO # 0.7 10^3/uL (0.0-0.8); MONO % 4.1 % (0.0-5.0); NEUTROPHILS # 15.3 10^3/uL (1.8-7.7); NEUTROPHILS % 92.8 % (36.0-66.0); PLATELET COUNT, AUTOMATED 676 10^3/uL (150-450); RED BLOOD COUNT 4.22 10^6/uL (4.00-5.40); RED CELL DISTRIBUTION WIDTH 15.8 % (11.5-14.5); WHITE BLOOD COUNT 16.5 10^3/uL (4.0-10.0)
[2018-05-09] MEDS: GASTROGRAFIN SOLUTION 30ML PO ×2 (18:45→19:21)
[2018-05-09 19:04] LABS: ANION GAP 13 MEQ/L (8-16); BLOOD UREA NITROGEN 35 MG/DL (7-18); CALCIUM LEVEL 8.8 MG/DL (8.8-10.2); CARBON DIOXIDE LEVEL 23 MEQ/L (21-32); CHLORIDE LEVEL 104 MEQ/L (98-107); CREATININE FOR GFR 1.32 MG/DL (0.55-1.30); GLOMERULAR FILTRATION RATE 40.4 (>32); GLUCOSE, FASTING 173 MG/DL (70-100); POTASSIUM SERUM 4.8 MEQ/L (3.5-5.1); SODIUM LEVEL 140 MEQ/L (136-145)
[2018-05-09] MEDS ORDERED: ISOVUE-370 76% 100ML VIAL (Q9967) As Ordered (20:01)
[2018-05-09 20:57] LABS: ALBUMIN 2.3 GM/DL (3.2-5.2)
[2018-05-09] MEDS ORDERED: OMEPRAZOLE 20 MG CAP PO (22:30)
[2018-05-09] MEDS ORDERED: BISACODYL 10 MG SUPP PR (22:30)
[2018-05-09] MEDS ORDERED: ACETAMINOPHEN TAB 650MG DOSE (2X325MG) PO (22:30)
[2018-05-09] MEDS ORDERED: zolPIDEM TARTRATE 5 MG TAB PO (22:30)
[2018-05-09] MEDS ORDERED: MORPHINE 4 MG/ML 1ML VIAL/SYRINGE (J2270) IV (22:30)
[2018-05-09] MEDS: NORCO, ANEXSIA 5/325MG TABLET (HYDROcodone/ACETAMINOPHEN) PO (22:42)
[2018-05-09] MEDS ORDERED: guaiFENesin DM LIQ 10ML UD PO (22:45)
[2018-05-09 22:57] LABS: ALBUMIN/GLOBULIN RATIO 0.64 (1.00-1.93); ALKALINE PHOSPHATASE 396 U/L (45-117); ALT/SGPT 29 U/L (12-78); AST/SGOT 70 U/L (7-37); BILIRUBIN,DIRECT 0.3 MG/DL (0.0-0.2); BILIRUBIN,TOTAL 0.6 MG/DL (0.2-1.0); TOTAL PROTEIN 5.9 GM/DL (6.4-8.2)
[2018-05-10] MEDS: NS 1,000 ML IV ×2 (00:27→08:49)
[2018-05-10] MEDS: ATORVASTATIN 10 MG TAB PO ×2 (00:29→21:42)
[2018-05-10] MEDS: FLUTICASONE PROP 0.05% NASAL SPRAY 16 GM (FLONASE) NARES ×3 (00:30→21:42)
[2018-05-10] MEDS: LATANOPROST 0.005% OPHTH SOLN 2.5 ML OS ×2 (00:30→21:42)
[2018-05-10] MEDS: CALCIUM/VITAMIN D 500 MG TAB PO ×3 (00:31→21:42)
[2018-05-10] MEDS: DOCUSATE SODIUM 100 MG CAP PO ×4 (00:31→21:38)
[2018-05-10] MEDS: NORCO, ANEXSIA 5/325MG TABLET (HYDROcodone/ACETAMINOPHEN) PO ×2 (03:28→15:15)
[2018-05-10 05:45] LABS: HEMOGLOBIN 10.6 g/dl (12.0-15.5); MEAN CORPUSCULAR HGB CONC 32.1 g/dl (32.0-36.5); MEAN CORPUSCULAR VOLUME 87.3 fl (80.0-96.0); PLATELET COUNT, AUTOMATED 626 10^3/uL (150-450); RED BLOOD COUNT 3.78 10^6/uL (4.00-5.40); RED CELL DISTRIBUTION WIDTH 15.9 % (11.5-14.5); WHITE BLOOD COUNT 14.7 10^3/uL (4.0-10.0)
[2018-05-10 05:56] LABS: INR 1.12; PROTHROMBIN TIME 14.5 SECONDS (12.1-14.4)
[2018-05-10 06:12] LABS: ALBUMIN 1.9 GM/DL (3.2-5.2); ALBUMIN/GLOBULIN RATIO 0.53 (1.00-1.93); ALKALINE PHOSPHATASE 327 U/L (45-117); ALT/SGPT 27 U/L (12-78); ANION GAP 9 MEQ/L (8-16); AST/SGOT 55 U/L (7-37); BILIRUBIN,TOTAL 0.4 MG/DL (0.2-1.0); BLOOD UREA NITROGEN 37 MG/DL (7-18); CARBON DIOXIDE LEVEL 24 MEQ/L (21-32); CHLORIDE LEVEL 107 MEQ/L (98-107); CREATININE FOR GFR 1.11 MG/DL (0.55-1.30); GLOMERULAR FILTRATION RATE 49.4 (>32); GLUCOSE, FASTING 143 MG/DL (70-100); POTASSIUM SERUM 4.9 MEQ/L (3.5-5.1); SODIUM LEVEL 140 MEQ/L (136-145); TOTAL PROTEIN 5.5 GM/DL (6.4-8.2)
[2018-05-10] MEDS: VITAMIN D 1,000 INTERNATIONAL UNITS TABLET PO (09:00)
[2018-05-10] MEDS: MULTIVITAMINS/MINERALS THERAP 1 TAB PO (09:00)
[2018-05-10] MEDS: DULoxetine 30 MG CAP (CYMBALTA) PO (09:00)
[2018-05-10] MEDS: ENOXAPARIN 30 MG/0.3 ML SYR (J1650) SC (12:00)
[2018-05-10] MEDS: MORPHINE 10MG/0.5ML ORAL CONCENTRATE SOLUTION U/D SL (13:26)
[2018-05-11 05:48] LABS: HEMATOCRIT 33.1 % (36.0-47.0); HEMOGLOBIN 10.5 g/dl (12.0-15.5); MEAN CORPUSCULAR HEMOGLOBIN 27.6 pg (27.0-33.0); MEAN CORPUSCULAR HGB CONC 31.7 g/dl (32.0-36.5); MEAN CORPUSCULAR VOLUME 87.1 fl (80.0-96.0); PLATELET COUNT, AUTOMATED 585 10^3/uL (150-450); WHITE BLOOD COUNT 13.2 10^3/uL (4.0-10.0)
[2018-05-11 05:57] LABS: INR 1.14; PROTHROMBIN TIME 14.8 SECONDS (12.1-14.4)
[2018-05-11 06:20] LABS: ALBUMIN 1.7 GM/DL (3.2-5.2); ALBUMIN/GLOBULIN RATIO 0.47 (1.00-1.93); ALKALINE PHOSPHATASE 330 U/L (45-117); ALT/SGPT 24 U/L (12-78); ANION GAP 7 MEQ/L (8-16); AST/SGOT 43 U/L (7-37); BILIRUBIN,TOTAL 0.3 MG/DL (0.2-1.0); BLOOD UREA NITROGEN 32 MG/DL (7-18); CARBON DIOXIDE LEVEL 26 MEQ/L (21-32); CHLORIDE LEVEL 106 MEQ/L (98-107); CREATININE FOR GFR 0.96 MG/DL (0.55-1.30); GLOMERULAR FILTRATION RATE 58.4 (>32); GLUCOSE, FASTING 157 MG/DL (70-100); POTASSIUM SERUM 4.5 MEQ/L (3.5-5.1); SODIUM LEVEL 139 MEQ/L (136-145); TOTAL PROTEIN 5.3 GM/DL (6.4-8.2)
[2018-05-11] MEDS: DOCUSATE SODIUM 100 MG CAP PO ×2 (07:13→20:02)
[2018-05-11] MEDS: ENOXAPARIN 30 MG/0.3 ML SYR (J1650) SC (07:26)
[2018-05-11] MEDS: DULoxetine 30 MG CAP (CYMBALTA) PO (07:27)
[2018-05-11] MEDS: FLUTICASONE PROP 0.05% NASAL SPRAY 16 GM (FLONASE) NARES ×2 (07:50→20:08)
[2018-05-11] MEDS: MORPHINE 10MG/0.5ML ORAL CONCENTRATE SOLUTION U/D SL ×5 (10:10→23:56)
[2018-05-11] MEDS: SCOPOLAMINE 1MG TRANSDERMAL PATCH TOP (11:41)
[2018-05-11] MEDS: LATANOPROST 0.005% OPHTH SOLN 2.5 ML OD (21:16)
[2018-05-11] MEDS: LATANOPROST 0.005% OPHTH SOLN 2.5 ML OS (21:16)
[2018-05-11] MEDS: LORazepam 2 MG/ML VIAL (J2060) IV (23:56)
[2018-05-12] MEDS: LORazepam 2 MG/ML VIAL (J2060) IV (06:17)
[2018-05-12] MEDS: MORPHINE 10MG/0.5ML ORAL CONCENTRATE SOLUTION U/D SL ×2 (06:17→16:23)
[2018-05-12] MEDS: FLUTICASONE PROP 0.05% NASAL SPRAY 16 GM (FLONASE) NARES ×2 (09:00→20:40)
[2018-05-12] MEDS: DOCUSATE SODIUM 100 MG CAP PO ×2 (09:00→20:33)
[2018-05-12] MEDS: DULoxetine 30 MG CAP (CYMBALTA) PO (09:00)
[2018-05-12] MEDS: LORazepam 0.5 MG TAB PO (20:39)
[2018-05-12] MEDS: LATANOPROST 0.005% OPHTH SOLN 2.5 ML OS (20:40)
[2018-05-13] MEDS: LORazepam 0.5 MG TAB PO ×3 (02:35→17:38)
[2018-05-13] MEDS: MORPHINE 10MG/0.5ML ORAL CONCENTRATE SOLUTION U/D SL ×7 (03:07→21:45)
[2018-05-13] MEDS: FLUTICASONE PROP 0.05% NASAL SPRAY 16 GM (FLONASE) NARES ×2 (09:00→20:02)
[2018-05-13] MEDS: DULoxetine 30 MG CAP (CYMBALTA) PO (09:00)
[2018-05-13] MEDS: DOCUSATE SODIUM 100 MG CAP PO ×2 (09:00→20:02)
[2018-05-13] MEDS: LATANOPROST 0.005% OPHTH SOLN 2.5 ML OS (20:02)
[2018-05-14] MEDS: MORPHINE 10MG/0.5ML ORAL CONCENTRATE SOLUTION U/D SL ×10 (01:19→23:38)
[2018-05-14] MEDS: LORazepam 0.5 MG TAB PO ×5 (01:19→23:39)
[2018-05-14] MEDS: FLUTICASONE PROP 0.05% NASAL SPRAY 16 GM (FLONASE) NARES ×2 (08:11→19:09)
[2018-05-14] MEDS: DULoxetine 30 MG CAP (CYMBALTA) PO (08:11)
[2018-05-14] MEDS: DOCUSATE SODIUM 100 MG CAP PO ×2 (08:11→19:09)
[2018-05-14] MEDS: SCOPOLAMINE 1MG TRANSDERMAL PATCH TOP (12:29)
[2018-05-14] MEDS: LATANOPROST 0.005% OPHTH SOLN 2.5 ML OS (19:09)
[2018-05-15] MEDS: MORPHINE 10MG/0.5ML ORAL CONCENTRATE SOLUTION U/D SL ×11 (01:39→22:48)
[2018-05-15] MEDS: LORazepam 0.5 MG TAB PO ×5 (03:39→20:48)
[2018-05-15] MEDS: FLUTICASONE PROP 0.05% NASAL SPRAY 16 GM (FLONASE) NARES (07:49)
[2018-05-15] MEDS: DULoxetine 30 MG CAP (CYMBALTA) PO (07:49)
[2018-05-15] MEDS: DOCUSATE SODIUM 100 MG CAP PO (07:49)
[2018-05-15] MEDS: LATANOPROST 0.005% OPHTH SOLN 2.5 ML OS (19:05)
[2018-05-16] MEDS: MORPHINE 10MG/0.5ML ORAL CONCENTRATE SOLUTION U/D SL ×6 (00:49→21:20)
[2018-05-16] MEDS: LORazepam 0.5 MG TAB PO ×4 (02:48→18:04)
[2018-05-16] MEDS: LATANOPROST 0.005% OPHTH SOLN 2.5 ML OS (21:00)
[2018-05-17] MEDS: MORPHINE 10MG/0.5ML ORAL CONCENTRATE SOLUTION U/D SL ×9 (04:04→23:58)
[2018-05-17] MEDS: LORazepam 0.5 MG TAB PO ×2 (08:41→13:05)
[2018-05-17] MEDS: SCOPOLAMINE 1MG TRANSDERMAL PATCH TOP (13:07)
[2018-05-17] MEDS: LORazepam 2 MG TAB PO (13:39)
[2018-05-17] MEDS: LORazepam 1 MG TAB PO ×3 (18:09→23:57)
[2018-05-17] MEDS: LATANOPROST 0.005% OPHTH SOLN 2.5 ML OS (21:00)
[2018-05-18] MEDS: MORPHINE 10MG/0.5ML ORAL CONCENTRATE SOLUTION U/D SL ×13 (02:11→23:25)
[2018-05-18] MEDS: LORazepam 1 MG TAB PO ×5 (06:01→14:59)
[2018-05-18] MEDS ORDERED: ATROPINE SULFATE 1% OP SOLN 2 ML BTL SL (10:00)
[2018-05-18] MEDS ORDERED: LORazepam 2 MG/ML VIAL (J2060) IV (10:30)
[2018-05-18] MEDS: LORazepam 2 MG TAB PO ×7 (10:58→22:24)
[2018-05-18] MEDS ORDERED: LORazepam 1 MG TAB PO (13:00)
[2018-05-18] MEDS: LATANOPROST 0.005% OPHTH SOLN 2.5 ML OS (21:00)
[2018-05-18] MEDS: LATANOPROST 0.005% OPHTH SOLN 2.5 ML OD (21:00)
[2018-05-19] MEDS: MORPHINE 10MG/0.5ML ORAL CONCENTRATE SOLUTION U/D SL (01:23)
== END 2018-05-19 02:15 | disposition expired | DRG 755 ==
LOC: M MSPAV 05-10 03:14 → M ED 17:38 → M ED INP 22:27
PROC: 0W9J30Z Drainage of Pelvic Cavity with Drainage Device, Percutaneous Approach (ICD-10-PCS; principal; 2018-05-10)
DX: C56.9 Malignant neoplasm of unspecified ovary (principal); K82.1 Hydrops of gallbladder; J91.0 Malignant pleural effusion; N17.9 Acute kidney failure, unspecified; C78.6 Secondary malignant neoplasm of retroperitoneum and peritoneum; E44.1 Mild protein-calorie malnutrition; C77.9 Secondary and unspecified malignant neoplasm of lymph node, unspecified; R64 Cachexia; R18.0 Malignant ascites; R62.7 Adult failure to thrive; E78.5 Hyperlipidemia, unspecified; K21.9 Gastro-esophageal reflux disease without esophagitis; K59.00 Constipation, unspecified; I10 Essential (primary) hypertension; F32.9 Major depressive disorder, single episode, unspecified; Z51.5 Encounter for palliative care; Z79.899 Other long term (current) drug therapy; Z88.8 Allergy status to other drugs, medicaments and biological substances; N20.0 Calculus of kidney; M19.90 Unspecified osteoarthritis, unspecified site